=== PATIENT | female | born 1950 | race Caucasian/White ===

== ENCOUNTER 2019-11-25 04:33 | Inpatient (IN) ==
[2019-11-25] MEDS ORDERED: 0.9 % Sodium Chloride 250 ML IVC ONE (04:39)
[2019-11-25 05:19] LABS: Basophils % 0.3 %; Eosinophils % 0.2 %; Hematocrit 33.9 % (35.3-44.9); Hemoglobin 10.9 g/dL (11.5-15.4); Immature Granulocytes % 0.3 % (0-4); Lymphocytes # 1.2 K/mcL (0.6-4.6); Mean Corpuscular HGB Conc 32.2 g/dL (31.6-35.5); Mean Corpuscular Hemoglobin 30.4 pg (28.0-33.3); Mean Corpuscular Volume 94.7 fL (83.0-100.0); Mean Platelet Volume 9.4 fL (9.4-12.4); Monocytes # 0.6 K/mcL (0.0-1.3); Monocytes % 9.9 %; Platelet Count 256 K/mcL (140-400); Red Blood Count 3.58 M/mcL (3.82-4.97); Red Cell Distribution Width 12.2 % (11.5-14.5); Segmented Neutrophils % 69.3 %; White Blood Count 5.8 K/mcL (4.3-11.1)
[2019-11-25 05:39] LABS: Albumin 3.9 g/dL (3.5-5.7); Albumin/Globulin Ratio 1.1 (1.1-2.2); Bilirubin,Total 0.2 mg/dL (0.3-1.0); Calcium 8.6 mg/dL (8.6-10.3); Globulin 3.4 g/dL (2.4-3.5); Potassium 3.6 mEq/L (3.5-5.1); Total Protein 7.3 g/dL (6.4-8.9); Troponin I 0.03 ng/mL (< 0.04)
[2019-11-25] MEDS ORDERED: 0.9 % Sodium Chloride 1,000 ML IVC ONE (05:45)
[2019-11-25 06:05] LABS: Bacteria,Urine Few per hpf (None-Few); Bilirubin,Urine Negative (Negative); Blood,Urine Trace (Negative); Clarity,Urine Clear (Clear); Color,Urine Light-Yellow (Yellow); Glucose,Urine (UA) Normal (Normal); Ketones,Urine Negative (Negative); Leukocyte Esterase,Urine Moderate (Negative); Mucus,Urine Few per lpf (None-Few); Nitrite,Urine Positive (Negative); PH,Urine 5.5 pH Units (5.0-8.0); Protein,Urine 50 mg/dL (Neg-Trace); RBC,Urine 0-3 per hpf (0-3); Specific Gravity,Urine 1.016 (1.010-1.025); Squamous Epithelial Cell,Urine Few per hpf (None-Few); Urobilinogen,Urine Normal (Normal); WBC,Urine 15-30 per hpf (0-3)
[2019-11-25] MEDS ORDERED: Naloxone 0.4 MG/ML INJ IVP PRN (06:37)
[2019-11-25] MEDS ORDERED: Dextrose Gel 15 GM/37.5 ML TUBE PO PRN ×2 (07:25)
[2019-11-25] MEDS ORDERED: D5% in Water 1,000 ML IVC PRN (07:25)
[2019-11-25] MEDS ORDERED: *HR* Dextrose 50 % in Water (Vial) 50 ML VIAL IVP PRN (07:25)
[2019-11-25] MEDS: Insulin LISPRO 300 UNITS/3 ML VIAL SQ SCH ×6 (08:17→18:00)
[2019-11-25 08:55] LABS: Fibrinogen 312 mg/dL (169-393)
[2019-11-25 08:56] LABS: D-Dimer 255 ng/mLFEU (0-500)
[2019-11-25] MEDS ORDERED: Famotidine 20 MG TABLET PO SCH (09:00)
[2019-11-25] MEDS: Aspirin Enteric Coated 81 MG Tablet PO SCH (10:11)
[2019-11-25] MEDS: Multivit/Ca/Min/Fe/FA 1 TAB TABLET PO SCH (10:11)
[2019-11-25] MEDS: Sennosides 8.6 MG TABLET PO SCH ×2 (10:11→20:15)
[2019-11-25] MEDS: Furosemide 40 MG TABLET PO SCH ×2 (10:11→20:15)
[2019-11-25] MEDS: Loratadine 10 MG TABLET PO SCH (10:11)
[2019-11-25] MEDS: hydroCHLOROthiazide 25 MG TABLET PO SCH (10:12)
[2019-11-25] MEDS: amLODIPine 5 MG TABLET PO SCH (10:12)
[2019-11-25] MEDS: polyethylene glycoL 3350 17 GM POWD.PACK PO SCH (10:12)
[2019-11-25] MEDS: Dexamethasone 4 MG/ML VIAL IVP SCH (10:12)
[2019-11-25] MEDS: Cholecalciferol (D-3) 1,000 UNIT (25MCG) TABLET PO SCH (10:14)
[2019-11-25] MEDS: Budesonide/Formoterol 80/4.5 1 PUFF INH IH SCH ×2 (10:38→21:33)
[2019-11-25 12:33] LABS: Adenovirus Not Detected (Not Detect); Coronavirus 229E Not Detected (Not Detect); Coronavirus HKU1 Not Detected (Not Detect); Coronavirus NL63 Not Detected (Not Detect); Coronavirus OC43 Not Detected (Not Detect)
[2019-11-25 12:36] LABS: Bordetella Pertussis Not Detected (Not Detect); Chlamydophila pneumoniae Not Detected (Not Detect); Human Metapneumovirus Not Detected (Not Detect); Human Rhinovirus/Enterovirus Not Detected (Not Detect); Influenza A Subtype 2009 H1 Not Detected (Not Detect); Influenza B Not Detected (Not Detect); Mycoplasma pneumoniae Not Detected (Not Detect); Parainfluenza Virus 1 Not Detected (Not Detect); Parainfluenza Virus 2 Not Detected (Not Detect); Parainfluenza Virus 3 Not Detected (Not Detect); Parainfluenza Virus 4 Not Detected (Not Detect); Respiratory Syncytial Virus Not Detected (Not Detect); SARS-CoV-2 DETECTED (Not Detect)
[2019-11-25] MEDS ORDERED: Benzonatate 100 MG CAPSULE PO PRN (17:01)
[2019-11-25] MEDS: *HR* Heparin 5,000 UNIT/ML VIAL SQ SCH (17:39)
[2019-11-25] MEDS: Silvasorb 44.4 ML TUBE TP SCH (17:40)
[2019-11-25] MEDS: Gabapentin 400 MG CAPSULE PO SCH (20:15)
[2019-11-25] MEDS: Fenofibrate 54 MG TABLET PO SCH (20:15)
[2019-11-25] MEDS: Insulin DETEMIR 100 UNIT/ML X5UNITS SQ SCH (20:34)
[2019-11-26 02:00] LABS: Basophils % 0.2 %; Eosinophils % 0.2 %; Hematocrit 30.8 % (35.3-44.9); Hemoglobin 10.3 g/dL (11.5-15.4); Immature Granulocytes % 0.2 % (0-4); Lymphocytes # 1.2 K/mcL (0.6-4.6); Lymphocytes % 28.7 %; Mean Corpuscular HGB Conc 33.4 g/dL (31.6-35.5); Mean Corpuscular Hemoglobin 31.2 pg (28.0-33.3); Mean Corpuscular Volume 93.3 fL (83.0-100.0); Mean Platelet Volume 9.4 fL (9.4-12.4); Monocytes # 0.5 K/mcL (0.0-1.3); Monocytes % 11.4 %; Neutrophils # 2.4 K/mcL (1.6-8.9); Platelet Count 226 K/mcL (140-400); Red Cell Distribution Width 12.1 % (11.5-14.5); Segmented Neutrophils % 59.3 %; White Blood Count 4.1 K/mcL (4.3-11.1)
[2019-11-26 02:19] LABS: Alanine Aminotransferase 19 Units/L (7-52); Albumin 3.8 g/dL (3.5-5.7); Albumin/Globulin Ratio 1.1 (1.1-2.2); Alkaline Phosphatase 36 Units/L (34-104); Aspartate Amino Transferase 21 Units/L (13-39); BUN/Creatinine Ratio 33 (6-26); Bilirubin,Direct 0.1 mg/dL (0.0-0.2); Bilirubin,Indirect 0.1 mg/dL (0.0-1.0); Bilirubin,Total 0.2 mg/dL (0.3-1.0); Blood Urea Nitrogen 34 mg/dL (8-23); Calcium 8.7 mg/dL (8.6-10.3); Carbon Dioxide 29 mEq/L (23-29); Chloride 92 mEq/L (98-107); Globulin 3.4 g/dL (2.4-3.5); Glucose 175 mg/dL (70-105); Osmolality,Calculated 288 (280-300); Potassium 3.4 mEq/L (3.5-5.1); Sodium 133 mEq/L (136-145); Total Protein 7.2 g/dL (6.4-8.9); eGFR For African Americans > 60 (> 60); eGFR For Non-African Americans 54 (> 60)
[2019-11-26] MEDS: *HR* HYDROcodone/Acet 5/325 mg TABLET PO PRN ×2 (03:57→11:32)
[2019-11-26 04:15] LABS: Magnesium 1.7 mg/dL (1.6-2.6)
[2019-11-26] MEDS: *HR* Heparin 5,000 UNIT/ML VIAL SQ SCH ×2 (05:54→19:21)
[2019-11-26] MEDS: Budesonide/Formoterol 80/4.5 1 PUFF INH IH SCH ×2 (08:03→21:53)
[2019-11-26] MEDS: Insulin LISPRO 300 UNITS/3 ML VIAL SQ SCH ×6 (09:06→19:19)
[2019-11-26] MEDS: Multivit/Ca/Min/Fe/FA 1 TAB TABLET PO SCH (09:14)
[2019-11-26] MEDS: Sennosides 8.6 MG TABLET PO SCH ×2 (09:14→20:42)
[2019-11-26] MEDS: Cholecalciferol (D-3) 1,000 UNIT (25MCG) TABLET PO SCH (09:14)
[2019-11-26] MEDS: hydroCHLOROthiazide 25 MG TABLET PO SCH (09:14)
[2019-11-26] MEDS: Furosemide 40 MG TABLET PO SCH ×2 (09:15→20:41)
[2019-11-26] MEDS: Famotidine 20 MG TABLET PO SCH (09:15)
[2019-11-26] MEDS: Aspirin Enteric Coated 81 MG Tablet PO SCH (09:15)
[2019-11-26] MEDS: Loratadine 10 MG TABLET PO SCH (09:15)
[2019-11-26] MEDS: amLODIPine 5 MG TABLET PO SCH (09:16)
[2019-11-26] MEDS: Dexamethasone 4 MG/ML VIAL IVP SCH ×2 (09:16→20:42)
[2019-11-26] MEDS: polyethylene glycoL 3350 17 GM POWD.PACK PO SCH (09:16)
[2019-11-26] MEDS: Silvasorb 44.4 ML TUBE TP SCH (09:18)
[2019-11-26] MEDS: Ipratropium 1 PUFF INHALER IH SCH ×3 (10:53→21:52)
[2019-11-26 13:06] LABS: ABG Base Excess 6 mEq/L (-2 to 3); ABG HCO3 31 mEq/L (21-27); ABG Oxygen Saturation 93 % (95-98); ABG PCO2 49 mmHg (35-45); ABG PH 7.42 pH Units (7.32-7.45); ABG PO2 67 mmHg (85-104); ABG TCO2 33 mEq/L (20-26)
[2019-11-26] MEDS ORDERED: 0.9 % Sodium Chloride 500 ML ONE (17:04)
[2019-11-26] MEDS: cefTRIAXone 1,000 MG in 0.9 % Sodium Chloride Mini Bag 100 ML IVPB SCH (17:16)
[2019-11-26] MEDS: Fenofibrate 54 MG TABLET PO SCH (20:42)
[2019-11-26] MEDS: Gabapentin 400 MG CAPSULE PO SCH (20:42)
[2019-11-26] MEDS: Insulin DETEMIR 100 UNIT/ML X5UNITS SQ SCH (20:43)
[2019-11-27] MEDS: Acetaminophen 325 MG TABLET PO PRN ×2 (00:22→11:51)
[2019-11-27] MEDS: Ipratropium 1 PUFF INHALER IH SCH ×4 (03:17→22:14)
[2019-11-27] MEDS: *HR* Heparin 5,000 UNIT/ML VIAL SQ SCH ×2 (05:41→18:32)
[2019-11-27 05:56] LABS: Hemoglobin 11.3 g/dL (11.5-15.4); Mean Corpuscular HGB Conc 32.3 g/dL (31.6-35.5); Mean Corpuscular Hemoglobin 30.3 pg (28.0-33.3); Mean Corpuscular Volume 93.8 fL (83.0-100.0); Mean Platelet Volume 9.9 fL (9.4-12.4); Platelet Count 222 K/mcL (140-400); Red Blood Count 3.73 M/mcL (3.82-4.97); Red Cell Distribution Width 12.3 % (11.5-14.5); White Blood Count 4.3 K/mcL (4.3-11.1)
[2019-11-27 06:19] LABS: Calcium 9.2 mg/dL (8.6-10.3); Magnesium 1.8 mg/dL (1.6-2.6); Phosphorous 4.6 mg/dL (2.7-4.5); Potassium 3.4 mEq/L (3.5-5.1)
[2019-11-27] MEDS: polyethylene glycoL 3350 17 GM POWD.PACK PO SCH (08:54)
[2019-11-27] MEDS: Famotidine 20 MG TABLET PO SCH (08:55)
[2019-11-27] MEDS: Loratadine 10 MG TABLET PO SCH (08:55)
[2019-11-27] MEDS: Sennosides 8.6 MG TABLET PO SCH ×2 (08:55→20:43)
[2019-11-27] MEDS: amLODIPine 5 MG TABLET PO SCH (08:55)
[2019-11-27] MEDS: Cholecalciferol (D-3) 1,000 UNIT (25MCG) TABLET PO SCH (08:55)
[2019-11-27] MEDS: Multivit/Ca/Min/Fe/FA 1 TAB TABLET PO SCH (08:55)
[2019-11-27] MEDS: Furosemide 40 MG TABLET PO SCH ×2 (08:56→20:43)
[2019-11-27] MEDS: Dexamethasone 4 MG/ML VIAL IVP SCH (08:56)
[2019-11-27] MEDS: Aspirin Enteric Coated 81 MG Tablet PO SCH (08:56)
[2019-11-27] MEDS: Insulin LISPRO 300 UNITS/3 ML VIAL SQ SCH ×5 (09:00→18:27)
[2019-11-27] MEDS: hydroCHLOROthiazide 25 MG TABLET PO SCH (09:00)
[2019-11-27] MEDS: Budesonide/Formoterol 80/4.5 1 PUFF INH IH SCH ×2 (09:15→22:14)
[2019-11-27] MEDS: Silvasorb 44.4 ML TUBE TP SCH (11:50)
[2019-11-27] MEDS: tiZANidine 4 MG TABLET PO SCH (13:57)
[2019-11-27] MEDS: Vancomycin 1,500 MG/265 ML IV.SOLN IVPB ONE (13:58)
[2019-11-27] MEDS ORDERED: Insulin LISPRO 300 UNITS/3 ML VIAL SQ SCH (17:00)
[2019-11-27] MEDS ORDERED: Vancomycin 1,500 MG/265 ML IV.SOLN IVPB ONE (20:00)
[2019-11-27] MEDS: Gabapentin 400 MG CAPSULE PO SCH (20:42)
[2019-11-27] MEDS: Fenofibrate 54 MG TABLET PO SCH (20:42)
[2019-11-27] MEDS: Melatonin 3 MG TABLET PO SCH (20:42)
[2019-11-27] MEDS: *HR* HYDROcodone/Acet 5/325 mg TABLET PO PRN (20:49)
[2019-11-27] MEDS ORDERED: Insulin DETEMIR 100 UNIT/ML X5UNITS SQ SCH ×2 (21:00)
[2019-11-27] MEDS ORDERED: Insulin LISPRO 300 UNITS/3 ML VIAL SQ ONE (21:13)
[2019-11-28] MEDS: Dexamethasone 4 MG/ML VIAL IVP SCH ×2 (00:02→10:21)
[2019-11-28] MEDS: cefTRIAXone 1,000 MG in 0.9 % Sodium Chloride Mini Bag 100 ML IVPB SCH (00:02)
[2019-11-28] MEDS ORDERED: CefTRIAXone 1,000 MG VIAL IM ONE (00:21)
[2019-11-28] MEDS ORDERED: Lidocaine 1% 20 ML MDV INFILT ONE (00:30)
[2019-11-28] MEDS ORDERED: hydrALAZINE 25 MG TABLET PO ONE (01:42)
[2019-11-28 01:55] LABS: ABG Base Excess 7 mEq/L (-2 to 3); ABG HCO3 33 mEq/L (21-27); ABG Oxygen Saturation 92 % (95-98); ABG PCO2 52 mmHg (35-45); ABG PH 7.41 pH Units (7.32-7.45); ABG PO2 65 mmHg (85-104); ABG TCO2 34 mEq/L (20-26)
[2019-11-28] MEDS ORDERED: Acetaminophen 650 MG RECTAL SUPP RC ONE (02:48)
[2019-11-28] MEDS: Ipratropium 1 PUFF INHALER IH SCH ×4 (03:38→21:27)
[2019-11-28 04:28] LABS: Basophils % 0.2 %; Hematocrit 31.6 % (35.3-44.9); Hemoglobin 10.4 g/dL (11.5-15.4); Immature Granulocytes % 0.5 % (0-4); Lymphocytes # 0.9 K/mcL (0.6-4.6); Lymphocytes % 14.4 %; Mean Corpuscular HGB Conc 32.9 g/dL (31.6-35.5); Mean Corpuscular Hemoglobin 30.2 pg (28.0-33.3); Mean Corpuscular Volume 91.9 fL (83.0-100.0); Mean Platelet Volume 9.9 fL (9.4-12.4); Monocytes # 0.4 K/mcL (0.0-1.3); Monocytes % 6.6 %; Neutrophils # 5.1 K/mcL (1.6-8.9); Platelet Count 239 K/mcL (140-400); Red Blood Count 3.44 M/mcL (3.82-4.97); Red Cell Distribution Width 12.2 % (11.5-14.5); Segmented Neutrophils % 78.3 %; White Blood Count 6.5 K/mcL (4.3-11.1)
[2019-11-28 04:44] LABS: Albumin 3.7 g/dL (3.5-5.7); Bilirubin,Total 0.3 mg/dL (0.3-1.0); Calcium 8.8 mg/dL (8.6-10.3); Globulin 3.8 g/dL (2.4-3.5); Potassium 4.1 mEq/L (3.5-5.1); Total Protein 7.5 g/dL (6.4-8.9)
[2019-11-28] MEDS: *HR* Heparin 5,000 UNIT/ML VIAL SQ SCH ×2 (05:56→18:01)
[2019-11-28] MEDS: polyethylene glycoL 3350 17 GM POWD.PACK PO SCH (08:41)
[2019-11-28] MEDS: Ascorbic Acid 500 MG TABLET PO SCH (08:42)
[2019-11-28] MEDS: Acetaminophen 325 MG TABLET PO PRN (08:43)
[2019-11-28] MEDS: tiZANidine 4 MG TABLET PO SCH (08:43)
[2019-11-28] MEDS: Aspirin Enteric Coated 81 MG Tablet PO SCH (08:44)
[2019-11-28] MEDS: Famotidine 20 MG TABLET PO SCH (08:44)
[2019-11-28] MEDS: Sennosides 8.6 MG TABLET PO SCH ×2 (08:44→21:17)
[2019-11-28] MEDS: Furosemide 40 MG TABLET PO SCH ×2 (08:45→21:17)
[2019-11-28] MEDS: hydroCHLOROthiazide 25 MG TABLET PO SCH (08:45)
[2019-11-28] MEDS: Cholecalciferol (D-3) 1,000 UNIT (25MCG) TABLET PO SCH (08:45)
[2019-11-28] MEDS: Multivit/Ca/Min/Fe/FA 1 TAB TABLET PO SCH (08:45)
[2019-11-28] MEDS: Loratadine 10 MG TABLET PO SCH (08:46)
[2019-11-28] MEDS: amLODIPine 5 MG TABLET PO SCH (08:46)
[2019-11-28] MEDS: Insulin LISPRO 300 UNITS/3 ML VIAL SQ SCH ×6 (08:49→16:38)
[2019-11-28] MEDS: Silvasorb 44.4 ML TUBE TP SCH (08:50)
[2019-11-28] MEDS ORDERED: NON-FORMULARY MEDICATION 1 EACH EACH (Calcium Carbonate/Vitamin D3 [Calcium 500-Vit D3 200 PO SCH (09:00)
[2019-11-28] MEDS: Budesonide/Formoterol 80/4.5 1 PUFF INH IH SCH ×2 (10:04→21:27)
[2019-11-28] MEDS ORDERED: Insulin Human Regular 10 UNIT in 0.9 % Sodium Chloride 10 ML IV ONE (11:28)
[2019-11-28 12:07] LABS: Estimated Average Glucose 217 mg/dl
[2019-11-28] MEDS: Cefepime HCl 2,000 MG in 0.9 % Sodium Chloride Mini Bag 100 ML IVPB SCH (15:21)
[2019-11-28] MEDS ORDERED: Vancomycin 1,250 MG/262.5 ML IV.SOLN IVPB SCH (20:00)
[2019-11-28] MEDS: Gabapentin 400 MG CAPSULE PO SCH (21:17)
[2019-11-28] MEDS: Doxycycline 100 MG CAPSULE PO SCH (21:17)
[2019-11-28] MEDS: Melatonin 3 MG TABLET PO SCH (21:17)
[2019-11-28] MEDS: Fenofibrate 54 MG TABLET PO SCH (21:17)
[2019-11-28] MEDS: Insulin DETEMIR 100 UNIT/ML X5UNITS SQ SCH (21:17)
[2019-11-29] MEDS: Cefepime HCl 2,000 MG in 0.9 % Sodium Chloride Mini Bag 100 ML IVPB SCH ×2 (03:12→16:55)
[2019-11-29] MEDS: Ipratropium 1 PUFF INHALER IH SCH ×4 (03:32→21:55)
[2019-11-29 03:50] LABS: Hematocrit 31.5 % (35.3-44.9); Hemoglobin 10.3 g/dL (11.5-15.4); Mean Corpuscular HGB Conc 32.7 g/dL (31.6-35.5); Mean Corpuscular Hemoglobin 30.3 pg (28.0-33.3); Mean Corpuscular Volume 92.6 fL (83.0-100.0); Mean Platelet Volume 10.2 fL (9.4-12.4); Platelet Count 299 K/mcL (140-400); Red Cell Distribution Width 12.1 % (11.5-14.5); White Blood Count 6.7 K/mcL (4.3-11.1)
[2019-11-29 04:02] LABS: Calcium 8.9 mg/dL (8.6-10.3); Magnesium 1.9 mg/dL (1.6-2.6); Phosphorous 2.5 mg/dL (2.7-4.5); Potassium 3.9 mEq/L (3.5-5.1)
[2019-11-29] MEDS: Acetaminophen 325 MG TABLET PO PRN (04:19)
[2019-11-29] MEDS: *HR* Heparin 5,000 UNIT/ML VIAL SQ SCH ×2 (05:29→17:19)
[2019-11-29] MEDS: Doxycycline 100 MG CAPSULE PO SCH ×2 (05:29→17:19)
[2019-11-29] MEDS: Vancomycin 1,500 MG/265 ML IV.SOLN IVPB ONE (07:47)
[2019-11-29] MEDS ORDERED: Dexamethasone 4 MG/ML VIAL IVP SCH ×2 (09:00→21:00)
[2019-11-29] MEDS: Budesonide/Formoterol 80/4.5 1 PUFF INH IH SCH ×2 (09:15→21:55)
[2019-11-29] MEDS: Insulin LISPRO 300 UNITS/3 ML VIAL SQ SCH ×6 (09:59→17:20)
[2019-11-29] MEDS: Insulin DETEMIR 100 UNIT/ML X5UNITS SQ SCH ×2 (09:59→20:49)
[2019-11-29] MEDS: hydroCHLOROthiazide 25 MG TABLET PO SCH (10:03)
[2019-11-29] MEDS: Famotidine 20 MG TABLET PO SCH (10:03)
[2019-11-29] MEDS: Sennosides 8.6 MG TABLET PO SCH ×2 (10:03→20:45)
[2019-11-29] MEDS: polyethylene glycoL 3350 17 GM POWD.PACK PO SCH (10:03)
[2019-11-29] MEDS: Cholecalciferol (D-3) 1,000 UNIT (25MCG) TABLET PO SCH (10:04)
[2019-11-29] MEDS: Ascorbic Acid 500 MG TABLET PO SCH (10:04)
[2019-11-29] MEDS: Aspirin Enteric Coated 81 MG Tablet PO SCH (10:04)
[2019-11-29] MEDS: Furosemide 40 MG TABLET PO SCH (10:04)
[2019-11-29] MEDS: amLODIPine 5 MG TABLET PO SCH (10:04)
[2019-11-29] MEDS: Multivit/Ca/Min/Fe/FA 1 TAB TABLET PO SCH (10:04)
[2019-11-29] MEDS: Loratadine 10 MG TABLET PO SCH (10:04)
[2019-11-29] MEDS: Cefepime HCl 2,000 MG in Water for inj. (sterile) 20 ML IVP SCH (15:07)
[2019-11-29] MEDS: Silvasorb 44.4 ML TUBE TP SCH (17:36)
[2019-11-29] MEDS ORDERED: Cefepime HCl 2,000 MG in Water for inj. (sterile) 20 ML IVP SCH (18:00)
[2019-11-29] MEDS: Fenofibrate 54 MG TABLET PO SCH (20:45)
[2019-11-29] MEDS: Gabapentin 400 MG CAPSULE PO SCH (20:45)
[2019-11-29] MEDS: Melatonin 3 MG TABLET PO SCH (20:45)
[2019-11-30] MEDS: Cefepime HCl 2,000 MG in Water for inj. (sterile) 20 ML IVP SCH ×2 (03:04→16:12)
[2019-11-30] MEDS: Ipratropium 1 PUFF INHALER IH SCH ×4 (03:56→21:27)
[2019-11-30] MEDS: Doxycycline 100 MG CAPSULE PO SCH ×2 (05:59→16:12)
[2019-11-30] MEDS: *HR* Heparin 5,000 UNIT/ML VIAL SQ SCH ×2 (05:59→16:12)
[2019-11-30 06:11] LABS: Hematocrit 31.6 % (35.3-44.9); Hemoglobin 10.7 g/dL (11.5-15.4); Mean Corpuscular HGB Conc 33.9 g/dL (31.6-35.5); Mean Corpuscular Hemoglobin 31.6 pg (28.0-33.3); Mean Corpuscular Volume 93.2 fL (83.0-100.0); Mean Platelet Volume 9.9 fL (9.4-12.4); Platelet Count 332 K/mcL (140-400); Red Blood Count 3.39 M/mcL (3.82-4.97); Red Cell Distribution Width 12.1 % (11.5-14.5); White Blood Count 6.9 K/mcL (4.3-11.1)
[2019-11-30 08:03] LABS: BUN/Creatinine Ratio 49 (6-26); Blood Urea Nitrogen 60 mg/dL (8-23); Calcium 9.5 mg/dL (8.6-10.3); Carbon Dioxide 31 mEq/L (23-29); Chloride 88 mEq/L (98-107); Ferritin 580 ng/mL (10-120); Glucose 205 mg/dL (70-105); Lactate Dehydrogenase 252 Units/L (140-271); Osmolality,Calculated 305 (280-300); Phosphorous 3.5 mg/dL (2.7-4.5); Potassium 3.5 mEq/L (3.5-5.1); Sodium 136 mEq/L (136-145); eGFR For African Americans 52 (> 60); eGFR For Non-African Americans 43 (> 60)
[2019-11-30 08:45] LABS: C-Reactive Protein > 300 mg/L (Less than 10)
[2019-11-30] MEDS ORDERED: Dexamethasone 4 MG/ML VIAL IVP SCH (09:00)
[2019-11-30] MEDS: Insulin LISPRO 300 UNITS/3 ML VIAL SQ SCH ×6 (09:26→17:00)
[2019-11-30] MEDS: Cholecalciferol (D-3) 1,000 UNIT (25MCG) TABLET PO SCH (09:33)
[2019-11-30] MEDS: hydroCHLOROthiazide 25 MG TABLET PO SCH (09:33)
[2019-11-30] MEDS: polyethylene glycoL 3350 17 GM POWD.PACK PO SCH (09:33)
[2019-11-30] MEDS: Loratadine 10 MG TABLET PO SCH (09:33)
[2019-11-30] MEDS: amLODIPine 5 MG TABLET PO SCH (09:33)
[2019-11-30] MEDS: Aspirin Enteric Coated 81 MG Tablet PO SCH (09:33)
[2019-11-30] MEDS: Multivit/Ca/Min/Fe/FA 1 TAB TABLET PO SCH (09:33)
[2019-11-30] MEDS: Ascorbic Acid 500 MG TABLET PO SCH (09:33)
[2019-11-30] MEDS: Famotidine 20 MG TABLET PO SCH (09:33)
[2019-11-30] MEDS: Furosemide 40 MG/4 ML VIAL IVP SCH (09:34)
[2019-11-30] MEDS: Sennosides 8.6 MG TABLET PO SCH ×2 (09:34→20:21)
[2019-11-30] MEDS: Insulin DETEMIR 100 UNIT/ML X5UNITS SQ SCH ×2 (09:35→20:23)
[2019-11-30] MEDS: Budesonide/Formoterol 80/4.5 1 PUFF INH IH SCH ×2 (10:38→21:28)
[2019-11-30] MEDS ORDERED: 0.9 % Sodium Chloride 250 ML ONE (16:11)
[2019-11-30] MEDS: Silvasorb 44.4 ML TUBE TP SCH (17:01)
[2019-11-30] MEDS: Dexamethasone 4 MG/ML VIAL IVP SCH (20:20)
[2019-11-30] MEDS: Gabapentin 400 MG CAPSULE PO SCH (20:21)
[2019-11-30] MEDS: Melatonin 3 MG TABLET PO SCH (20:22)
[2019-11-30] MEDS: Fenofibrate 54 MG TABLET PO SCH (20:22)
[2019-11-30] MEDS ORDERED: Insulin DETEMIR 100 UNIT/ML X5UNITS SQ SCH (21:00)
[2019-12-01] MEDS: Cefepime HCl 2,000 MG in Water for inj. (sterile) 20 ML IVP SCH ×2 (02:51→14:46)
[2019-12-01] MEDS: Ipratropium 1 PUFF INHALER IH SCH ×4 (03:46→21:32)
[2019-12-01 03:59] LABS: Basophils % 0.2 %; Hematocrit 30.5 % (35.3-44.9); Hemoglobin 9.9 g/dL (11.5-15.4); Immature Granulocytes % 1.2 % (0-4); Lymphocytes # 0.9 K/mcL (0.6-4.6); Lymphocytes % 15.3 %; Mean Corpuscular HGB Conc 32.5 g/dL (31.6-35.5); Mean Corpuscular Hemoglobin 30.1 pg (28.0-33.3); Mean Corpuscular Volume 92.7 fL (83.0-100.0); Mean Platelet Volume 9.7 fL (9.4-12.4); Monocytes # 0.4 K/mcL (0.0-1.3); Monocytes % 7.3 %; Neutrophils # 4.5 K/mcL (1.6-8.9); Platelet Count 387 K/mcL (140-400); Red Blood Count 3.29 M/mcL (3.82-4.97); White Blood Count 5.9 K/mcL (4.3-11.1)
[2019-12-01 04:19] LABS: BUN/Creatinine Ratio 64 (6-26); Blood Urea Nitrogen 69 mg/dL (8-23); Carbon Dioxide 30 mEq/L (23-29); Chloride 90 mEq/L (98-107); Glucose 177 mg/dL (70-105); Osmolality,Calculated 300 (280-300); Potassium 3.7 mEq/L (3.5-5.1); Sodium 133 mEq/L (136-145); eGFR For African Americans > 60 (> 60); eGFR For Non-African Americans 50 (> 60)
[2019-12-01] MEDS: *HR* Heparin 5,000 UNIT/ML VIAL SQ SCH ×2 (06:12→17:24)
[2019-12-01] MEDS: Doxycycline 100 MG CAPSULE PO SCH ×2 (06:14→17:24)
[2019-12-01] MEDS: Multivit/Ca/Min/Fe/FA 1 TAB TABLET PO SCH (08:38)
[2019-12-01] MEDS: Loratadine 10 MG TABLET PO SCH (08:38)
[2019-12-01] MEDS: Aspirin Enteric Coated 81 MG Tablet PO SCH (08:38)
[2019-12-01] MEDS: Cholecalciferol (D-3) 1,000 UNIT (25MCG) TABLET PO SCH (08:38)
[2019-12-01] MEDS: amLODIPine 5 MG TABLET PO SCH (08:38)
[2019-12-01] MEDS: Sennosides 8.6 MG TABLET PO SCH ×2 (08:39→21:16)
[2019-12-01] MEDS: Famotidine 20 MG TABLET PO SCH (08:39)
[2019-12-01] MEDS: hydroCHLOROthiazide 25 MG TABLET PO SCH (08:39)
[2019-12-01] MEDS: Furosemide 40 MG/4 ML VIAL IVP SCH (08:39)
[2019-12-01] MEDS: Ascorbic Acid 500 MG TABLET PO SCH (08:39)
[2019-12-01] MEDS: Dexamethasone 4 MG/ML VIAL IVP SCH ×2 (08:39→21:17)
[2019-12-01] MEDS: polyethylene glycoL 3350 17 GM POWD.PACK PO SCH (08:40)
[2019-12-01] MEDS: Insulin DETEMIR 100 UNIT/ML X5UNITS SQ SCH ×2 (08:42→21:40)
[2019-12-01] MEDS: Insulin LISPRO 300 UNITS/3 ML VIAL SQ SCH ×6 (08:43→17:14)
[2019-12-01] MEDS: Ondansetron 4 MG/2 ML VIAL IVP PRN (09:10)
[2019-12-01] MEDS: Budesonide/Formoterol 80/4.5 1 PUFF INH IH SCH ×2 (10:18→21:34)
[2019-12-01] MEDS: Acetaminophen 325 MG TABLET PO PRN ×2 (10:27→23:57)
[2019-12-01] MEDS: Silvasorb 44.4 ML TUBE TP SCH (13:07)
[2019-12-01] MEDS ORDERED: 0.9 % Sodium Chloride 250 ML ONE (14:44)
[2019-12-01] MEDS: Melatonin 3 MG TABLET PO SCH (21:16)
[2019-12-01] MEDS: Fenofibrate 54 MG TABLET PO SCH (21:16)
[2019-12-01] MEDS: Gabapentin 400 MG CAPSULE PO SCH (21:16)
[2019-12-02] MEDS: Cefepime HCl 2,000 MG in Water for inj. (sterile) 20 ML IVP SCH ×2 (02:42→15:48)
[2019-12-02] MEDS: Ipratropium 1 PUFF INHALER IH SCH ×4 (03:27→21:59)
[2019-12-02 03:59] LABS: Basophils % 0.1 %; Hematocrit 29.8 % (35.3-44.9); Hemoglobin 9.7 g/dL (11.5-15.4); Immature Granulocytes % 1.7 % (0-4); Lymphocytes % 13.5 %; Mean Corpuscular HGB Conc 32.6 g/dL (31.6-35.5); Mean Corpuscular Hemoglobin 30.7 pg (28.0-33.3); Mean Corpuscular Volume 94.3 fL (83.0-100.0); Mean Platelet Volume 9.7 fL (9.4-12.4); Monocytes # 0.6 K/mcL (0.0-1.3); Neutrophils # 5.9 K/mcL (1.6-8.9); Platelet Count 418 K/mcL (140-400); Red Blood Count 3.16 M/mcL (3.82-4.97); Red Cell Distribution Width 11.9 % (11.5-14.5); Segmented Neutrophils % 76.7 %; White Blood Count 7.7 K/mcL (4.3-11.1)
[2019-12-02] MEDS: Doxycycline 100 MG CAPSULE PO SCH ×2 (05:10→17:51)
[2019-12-02] MEDS: *HR* Heparin 5,000 UNIT/ML VIAL SQ SCH ×2 (05:10→17:51)
[2019-12-02] MEDS: Insulin LISPRO 300 UNITS/3 ML VIAL SQ SCH ×6 (09:05→16:23)
[2019-12-02] MEDS: Furosemide 40 MG/4 ML VIAL IVP SCH (09:15)
[2019-12-02] MEDS: Dexamethasone 4 MG/ML VIAL IVP SCH ×2 (09:16→21:17)
[2019-12-02] MEDS: hydroCHLOROthiazide 25 MG TABLET PO SCH (09:16)
[2019-12-02] MEDS: Insulin DETEMIR 100 UNIT/ML X5UNITS SQ SCH ×2 (09:16→21:16)
[2019-12-02] MEDS: Aspirin Enteric Coated 81 MG Tablet PO SCH (09:16)
[2019-12-02] MEDS: Ascorbic Acid 500 MG TABLET PO SCH (09:17)
[2019-12-02] MEDS: Cholecalciferol (D-3) 1,000 UNIT (25MCG) TABLET PO SCH (09:17)
[2019-12-02] MEDS: Multivit/Ca/Min/Fe/FA 1 TAB TABLET PO SCH (09:17)
[2019-12-02] MEDS: amLODIPine 5 MG TABLET PO SCH (09:17)
[2019-12-02] MEDS: Famotidine 20 MG TABLET PO SCH (09:17)
[2019-12-02] MEDS: Loratadine 10 MG TABLET PO SCH (09:17)
[2019-12-02] MEDS: polyethylene glycoL 3350 17 GM POWD.PACK PO SCH (09:18)
[2019-12-02] MEDS: Sennosides 8.6 MG TABLET PO SCH ×2 (09:18→21:16)
[2019-12-02] MEDS: Acetaminophen 325 MG TABLET PO PRN (09:46)
[2019-12-02] MEDS: Silvasorb 44.4 ML TUBE TP SCH (10:00)
[2019-12-02] MEDS: Budesonide/Formoterol 80/4.5 1 PUFF INH IH SCH ×2 (11:34→21:59)
[2019-12-02] MEDS: Melatonin 3 MG TABLET PO SCH (21:16)
[2019-12-02] MEDS: Gabapentin 400 MG CAPSULE PO SCH (21:17)
[2019-12-02] MEDS: Fenofibrate 54 MG TABLET PO SCH (21:17)
[2019-12-03] MEDS: Acetaminophen 325 MG TABLET PO PRN (00:14)
[2019-12-03] MEDS: Cefepime HCl 2,000 MG in Water for inj. (sterile) 20 ML IVP SCH ×2 (02:38→15:55)
[2019-12-03 03:17] LABS: Basophils % 0.2 %; Hematocrit 30.8 % (35.3-44.9); Immature Granulocytes % 1.4 % (0-4); Lymphocytes % 10.8 %; Mean Corpuscular HGB Conc 32.5 g/dL (31.6-35.5); Mean Corpuscular Hemoglobin 30.4 pg (28.0-33.3); Mean Corpuscular Volume 93.6 fL (83.0-100.0); Mean Platelet Volume 9.6 fL (9.4-12.4); Monocytes # 0.8 K/mcL (0.0-1.3); Neutrophils # 7.2 K/mcL (1.6-8.9); Platelet Count 488 K/mcL (140-400); Red Blood Count 3.29 M/mcL (3.82-4.97); Red Cell Distribution Width 11.9 % (11.5-14.5); Segmented Neutrophils % 78.6 %; White Blood Count 9.2 K/mcL (4.3-11.1)
[2019-12-03 03:30] LABS: Albumin 3.5 g/dL (3.5-5.7); Albumin/Globulin Ratio 0.8 (1.1-2.2); Bilirubin,Total 0.4 mg/dL (0.3-1.0); Calcium 10.6 mg/dL (8.6-10.3); Globulin 4.3 g/dL (2.4-3.5); Potassium 4.2 mEq/L (3.5-5.1); Total Protein 7.8 g/dL (6.4-8.9)
[2019-12-03] MEDS: Ipratropium 1 PUFF INHALER IH SCH ×4 (04:03→21:47)
[2019-12-03] MEDS: *HR* Heparin 5,000 UNIT/ML VIAL SQ SCH ×2 (05:43→18:07)
[2019-12-03] MEDS: Doxycycline 100 MG CAPSULE PO SCH ×2 (05:43→18:08)
[2019-12-03] MEDS: Insulin LISPRO 300 UNITS/3 ML VIAL SQ SCH ×6 (09:56→16:47)
[2019-12-03] MEDS: Insulin DETEMIR 100 UNIT/ML X5UNITS SQ SCH ×2 (09:58→20:16)
[2019-12-03] MEDS: Furosemide 40 MG/4 ML VIAL IVP SCH (10:01)
[2019-12-03] MEDS: Ascorbic Acid 500 MG TABLET PO SCH (10:02)
[2019-12-03] MEDS: Dexamethasone 4 MG/ML VIAL IVP SCH ×2 (10:02→20:15)
[2019-12-03] MEDS: Multivit/Ca/Min/Fe/FA 1 TAB TABLET PO SCH (10:02)
[2019-12-03] MEDS: Cholecalciferol (D-3) 1,000 UNIT (25MCG) TABLET PO SCH (10:02)
[2019-12-03] MEDS: amLODIPine 5 MG TABLET PO SCH (10:03)
[2019-12-03] MEDS: hydroCHLOROthiazide 25 MG TABLET PO SCH (10:03)
[2019-12-03] MEDS: Loratadine 10 MG TABLET PO SCH (10:03)
[2019-12-03] MEDS: Famotidine 20 MG TABLET PO SCH (10:03)
[2019-12-03] MEDS: Sennosides 8.6 MG TABLET PO SCH ×2 (10:03→20:15)
[2019-12-03] MEDS: polyethylene glycoL 3350 17 GM POWD.PACK PO SCH (10:03)
[2019-12-03] MEDS: Aspirin Enteric Coated 81 MG Tablet PO SCH (10:03)
[2019-12-03] MEDS: Budesonide/Formoterol 80/4.5 1 PUFF INH IH SCH ×2 (10:28→21:47)
[2019-12-03] MEDS: Silvasorb 44.4 ML TUBE TP SCH (16:01)
[2019-12-03] MEDS: Furosemide 20 MG/2 ML VIAL IVP SCH (18:08)
[2019-12-03] MEDS: Gabapentin 400 MG CAPSULE PO SCH (20:16)
[2019-12-03] MEDS: Fenofibrate 54 MG TABLET PO SCH (20:16)
[2019-12-03] MEDS: Melatonin 3 MG TABLET PO SCH (20:16)
[2019-12-04] MEDS: Cefepime HCl 2,000 MG in Water for inj. (sterile) 20 ML IVP SCH ×2 (04:00→16:34)
[2019-12-04] MEDS: Ipratropium 1 PUFF INHALER IH SCH ×4 (04:27→21:36)
[2019-12-04] MEDS: *HR* Heparin 5,000 UNIT/ML VIAL SQ SCH ×2 (06:08→16:33)
[2019-12-04] MEDS: Doxycycline 100 MG CAPSULE PO SCH ×2 (06:08→16:34)
[2019-12-04 06:56] LABS: Basophils % 0.4 %; Eosinophils % 0.1 %; Hematocrit 32.8 % (35.3-44.9); Hemoglobin 10.3 g/dL (11.5-15.4); Immature Granulocytes % 2.5 % (0-4); Lymphocytes # 1.2 K/mcL (0.6-4.6); Lymphocytes % 12.4 %; Mean Corpuscular HGB Conc 31.4 g/dL (31.6-35.5); Mean Corpuscular Hemoglobin 29.6 pg (28.0-33.3); Mean Corpuscular Volume 94.3 fL (83.0-100.0); Mean Platelet Volume 9.3 fL (9.4-12.4); Monocytes # 0.8 K/mcL (0.0-1.3); Monocytes % 8.5 %; Neutrophils # 7.4 K/mcL (1.6-8.9); Platelet Count 641 K/mcL (140-400); Red Blood Count 3.48 M/mcL (3.82-4.97); Red Cell Distribution Width 11.9 % (11.5-14.5); Segmented Neutrophils % 76.1 %; White Blood Count 9.7 K/mcL (4.3-11.1)
[2019-12-04 07:25] LABS: Alanine Aminotransferase 23 Units/L (7-52); Albumin 3.7 g/dL (3.5-5.7); Albumin/Globulin Ratio 0.8 (1.1-2.2); Alkaline Phosphatase 46 Units/L (34-104); Aspartate Amino Transferase 26 Units/L (13-39); BUN/Creatinine Ratio 65 (6-26); Bilirubin,Total 0.4 mg/dL (0.3-1.0); Blood Urea Nitrogen 81 mg/dL (8-23); Calcium 11.2 mg/dL (8.6-10.3); Carbon Dioxide 31 mEq/L (23-29); Chloride 90 mEq/L (98-107); Globulin 4.8 g/dL (2.4-3.5); Glucose 181 mg/dL (70-105); Lactate Dehydrogenase 236 Units/L (140-271); Osmolality,Calculated 309 (280-300); Potassium 4.1 mEq/L (3.5-5.1); Sodium 135 mEq/L (136-145); Total Protein 8.5 g/dL (6.4-8.9); eGFR For African Americans 52 (> 60); eGFR For Non-African Americans 43 (> 60)
[2019-12-04 07:43] LABS: Ferritin 675 ng/mL (10-120)
[2019-12-04] MEDS: Budesonide/Formoterol 80/4.5 1 PUFF INH IH SCH ×2 (09:19→21:35)
[2019-12-04] MEDS: Insulin LISPRO 300 UNITS/3 ML VIAL SQ SCH ×6 (09:37→17:07)
[2019-12-04] MEDS: Insulin DETEMIR 100 UNIT/ML X5UNITS SQ SCH ×2 (09:37→20:52)
[2019-12-04] MEDS: Loratadine 10 MG TABLET PO SCH (09:38)
[2019-12-04] MEDS: Aspirin Enteric Coated 81 MG Tablet PO SCH (09:38)
[2019-12-04] MEDS: Ascorbic Acid 500 MG TABLET PO SCH (09:38)
[2019-12-04] MEDS: Famotidine 20 MG TABLET PO SCH (09:38)
[2019-12-04] MEDS: hydroCHLOROthiazide 25 MG TABLET PO SCH (09:38)
[2019-12-04] MEDS: Cholecalciferol (D-3) 1,000 UNIT (25MCG) TABLET PO SCH (09:38)
[2019-12-04] MEDS: Multivit/Ca/Min/Fe/FA 1 TAB TABLET PO SCH (09:38)
[2019-12-04] MEDS: Furosemide 40 MG/4 ML VIAL IVP SCH (09:39)
[2019-12-04] MEDS: Dexamethasone 4 MG/ML VIAL IVP SCH ×2 (09:39→20:51)
[2019-12-04] MEDS: Sennosides 8.6 MG TABLET PO SCH ×2 (09:39→20:51)
[2019-12-04 09:44] LABS: C-Reactive Protein > 300 mg/L (Less than 10)
[2019-12-04] MEDS: polyethylene glycoL 3350 17 GM POWD.PACK PO SCH (09:45)
[2019-12-04] MEDS: Silvasorb 44.4 ML TUBE TP SCH (09:48)
[2019-12-04] MEDS: amLODIPine 5 MG TABLET PO SCH ×2 (09:48→09:49)
[2019-12-04] MEDS: Ondansetron 4 MG/2 ML VIAL IVP PRN (10:15)
[2019-12-04] MEDS: Furosemide 20 MG/2 ML VIAL IVP SCH (16:34)
[2019-12-04] MEDS: Melatonin 3 MG TABLET PO SCH (20:50)
[2019-12-04] MEDS: Fenofibrate 54 MG TABLET PO SCH (20:51)
[2019-12-04] MEDS: Gabapentin 400 MG CAPSULE PO SCH (20:51)
[2019-12-05] MEDS: Cefepime HCl 2,000 MG in Water for inj. (sterile) 20 ML IVP SCH (02:58)
[2019-12-05] MEDS: Ipratropium 1 PUFF INHALER IH SCH ×4 (03:27→21:34)
[2019-12-05] MEDS: *HR* Heparin 5,000 UNIT/ML VIAL SQ SCH ×2 (06:11→17:47)
[2019-12-05] MEDS: Doxycycline 100 MG CAPSULE PO SCH (06:11)
[2019-12-05] MEDS: Loratadine 10 MG TABLET PO SCH (07:47)
[2019-12-05] MEDS: Cholecalciferol (D-3) 1,000 UNIT (25MCG) TABLET PO SCH (07:47)
[2019-12-05] MEDS: hydroCHLOROthiazide 25 MG TABLET PO SCH (07:47)
[2019-12-05] MEDS: Multivit/Ca/Min/Fe/FA 1 TAB TABLET PO SCH (07:47)
[2019-12-05] MEDS: Ascorbic Acid 500 MG TABLET PO SCH (07:47)
[2019-12-05] MEDS: Famotidine 20 MG TABLET PO SCH (07:48)
[2019-12-05] MEDS: Furosemide 40 MG/4 ML VIAL IVP SCH (07:48)
[2019-12-05] MEDS: amLODIPine 5 MG TABLET PO SCH (07:48)
[2019-12-05] MEDS: Sennosides 8.6 MG TABLET PO SCH ×2 (07:48→20:09)
[2019-12-05] MEDS: Aspirin Enteric Coated 81 MG Tablet PO SCH (07:48)
[2019-12-05] MEDS: polyethylene glycoL 3350 17 GM POWD.PACK PO SCH (07:48)
[2019-12-05] MEDS: Silvasorb 44.4 ML TUBE TP SCH (07:49)
[2019-12-05] MEDS: Insulin DETEMIR 100 UNIT/ML X5UNITS SQ SCH ×2 (07:49→20:39)
[2019-12-05] MEDS: Insulin LISPRO 300 UNITS/3 ML VIAL SQ SCH ×6 (07:50→16:34)
[2019-12-05] MEDS: Budesonide/Formoterol 80/4.5 1 PUFF INH IH SCH ×2 (07:55→21:34)
[2019-12-05 09:08] LABS: Basophils # 0.1 K/mcL (0.0-0.2); Basophils % 0.3 %; Eosinophils % 0.2 %; Hematocrit 35.3 % (35.3-44.9); Hemoglobin 11.4 g/dL (11.5-15.4); Immature Granulocytes % 1.4 % (0-4); Lymphocytes % 7.6 %; Mean Corpuscular HGB Conc 32.3 g/dL (31.6-35.5); Mean Corpuscular Hemoglobin 30.3 pg (28.0-33.3); Mean Corpuscular Volume 93.9 fL (83.0-100.0); Mean Platelet Volume 9.4 fL (9.4-12.4); Monocytes # 1.5 K/mcL (0.0-1.3); Monocytes % 8.9 %; Neutrophils # 13.4 K/mcL (1.6-8.9); Platelet Count 697 K/mcL (140-400); Red Blood Count 3.76 M/mcL (3.82-4.97); Segmented Neutrophils % 81.6 %
[2019-12-05 09:22] LABS: Lymphocytes # 1.3 K/mcL (0.6-4.6); White Blood Count 16.4 K/mcL (4.3-11.1)
[2019-12-05 09:31] LABS: Albumin 3.7 g/dL (3.5-5.7); Albumin/Globulin Ratio 0.7 (1.1-2.2); Bilirubin,Total 0.4 mg/dL (0.3-1.0); Calcium 11.1 mg/dL (8.6-10.3); Potassium 4.1 mEq/L (3.5-5.1); Total Protein 8.7 g/dL (6.4-8.9)
[2019-12-05] MEDS: Fenofibrate 54 MG TABLET PO SCH (20:10)
[2019-12-05] MEDS: Gabapentin 400 MG CAPSULE PO SCH (20:10)
[2019-12-05] MEDS: Melatonin 3 MG TABLET PO SCH (20:10)
[2019-12-05] MEDS: Acetaminophen 325 MG TABLET PO PRN (23:20)
[2019-12-06] MEDS: Ipratropium 1 PUFF INHALER IH SCH ×4 (04:45→22:30)
[2019-12-06] MEDS: *HR* Heparin 5,000 UNIT/ML VIAL SQ SCH ×2 (05:05→17:23)
[2019-12-06] MEDS: Budesonide/Formoterol 80/4.5 1 PUFF INH IH SCH ×2 (08:28→22:31)
[2019-12-06 09:49] LABS: Basophils % 0.2 %; Eosinophils % 0.1 %; Hematocrit 33.6 % (35.3-44.9); Hemoglobin 10.9 g/dL (11.5-15.4); Immature Granulocytes % 1.3 % (0-4); Lymphocytes # 1.1 K/mcL (0.6-4.6); Lymphocytes % 5.6 %; Mean Corpuscular HGB Conc 32.4 g/dL (31.6-35.5); Mean Corpuscular Hemoglobin 30.4 pg (28.0-33.3); Mean Corpuscular Volume 93.9 fL (83.0-100.0); Mean Platelet Volume 9.5 fL (9.4-12.4); Monocytes # 1.5 K/mcL (0.0-1.3); Monocytes % 7.8 %; Neutrophils # 16.7 K/mcL (1.6-8.9); Nucleated Red Blood Cells 0.1 /100 WBC (0); Platelet Count 795 K/mcL (140-400); Red Blood Count 3.58 M/mcL (3.82-4.97); White Blood Count 19.7 K/mcL (4.3-11.1)
[2019-12-06] MEDS: Aspirin Enteric Coated 81 MG Tablet PO SCH (10:13)
[2019-12-06] MEDS: Multivit/Ca/Min/Fe/FA 1 TAB TABLET PO SCH (10:14)
[2019-12-06] MEDS: Loratadine 10 MG TABLET PO SCH (10:14)
[2019-12-06] MEDS: Famotidine 20 MG TABLET PO SCH (10:14)
[2019-12-06] MEDS: polyethylene glycoL 3350 17 GM POWD.PACK PO SCH (10:14)
[2019-12-06] MEDS: Ascorbic Acid 500 MG TABLET PO SCH (10:14)
[2019-12-06] MEDS: Sennosides 8.6 MG TABLET PO SCH ×2 (10:14→20:47)
[2019-12-06] MEDS: amLODIPine 5 MG TABLET PO SCH (10:14)
[2019-12-06] MEDS: Insulin DETEMIR 100 UNIT/ML X5UNITS SQ SCH ×2 (10:15→20:52)
[2019-12-06] MEDS: Silvasorb 44.4 ML TUBE TP SCH (10:15)
[2019-12-06] MEDS: Cholecalciferol (D-3) 1,000 UNIT (25MCG) TABLET PO SCH (10:18)
[2019-12-06] MEDS: Insulin LISPRO 300 UNITS/3 ML VIAL SQ SCH ×6 (10:19→16:29)
[2019-12-06 10:22] LABS: Albumin 3.4 g/dL (3.5-5.7); Albumin/Globulin Ratio 0.7 (1.1-2.2); Bilirubin,Total 0.4 mg/dL (0.3-1.0); Calcium 10.5 mg/dL (8.6-10.3); Total Protein 8.4 g/dL (6.4-8.9)
[2019-12-06] MEDS: *HR* Metoprolol 5 MG/5 ML VIAL IVP PRN (14:12)
[2019-12-06] MEDS ORDERED: 0.9 % Sodium Chloride 1,000 ML IVC SCH (15:00)
[2019-12-06] MEDS: Fenofibrate 54 MG TABLET PO SCH (20:47)
[2019-12-06] MEDS: Melatonin 3 MG TABLET PO SCH (20:47)
[2019-12-06] MEDS: Acetaminophen 325 MG TABLET PO PRN (20:48)
[2019-12-06] MEDS: Gabapentin 300 MG CAPSULE PO SCH (20:48)
[2019-12-07] MEDS: Ipratropium 1 PUFF INHALER IH SCH ×4 (03:48→22:04)
[2019-12-07] MEDS: *HR* Heparin 5,000 UNIT/ML VIAL SQ SCH ×2 (05:59→16:32)
[2019-12-07 07:22] LABS: Basophils % 0.1 %; Eosinophils # 0.1 K/mcL (0.0-0.6); Eosinophils % 0.4 %; Hematocrit 31.9 % (35.3-44.9); Hemoglobin 10.1 g/dL (11.5-15.4); Immature Granulocytes % 1.1 % (0-4); Lymphocytes # 1.2 K/mcL (0.6-4.6); Lymphocytes % 5.3 %; Mean Corpuscular HGB Conc 31.7 g/dL (31.6-35.5); Mean Corpuscular Hemoglobin 30.1 pg (28.0-33.3); Mean Corpuscular Volume 95.2 fL (83.0-100.0); Mean Platelet Volume 9.6 fL (9.4-12.4); Monocytes # 1.9 K/mcL (0.0-1.3); Monocytes % 8.4 %; Neutrophils # 19.1 K/mcL (1.6-8.9); Platelet Count 867 K/mcL (140-400); Red Blood Count 3.35 M/mcL (3.82-4.97); Segmented Neutrophils % 84.7 %; White Blood Count 22.6 K/mcL (4.3-11.1)
[2019-12-07 07:46] LABS: Albumin 3.3 g/dL (3.5-5.7); Albumin/Globulin Ratio 0.7 (1.1-2.2); Bilirubin,Total 0.3 mg/dL (0.3-1.0); Calcium 10.5 mg/dL (8.6-10.3); Globulin 4.7 g/dL (2.4-3.5); Potassium 3.8 mEq/L (3.5-5.1)
[2019-12-07] MEDS: Insulin LISPRO 300 UNITS/3 ML VIAL SQ SCH ×6 (09:14→17:35)
[2019-12-07] MEDS: Insulin DETEMIR 100 UNIT/ML X5UNITS SQ SCH ×2 (09:15→21:49)
[2019-12-07] MEDS: Loratadine 10 MG TABLET PO SCH (09:18)
[2019-12-07] MEDS: polyethylene glycoL 3350 17 GM POWD.PACK PO SCH (09:18)
[2019-12-07] MEDS: Ascorbic Acid 500 MG TABLET PO SCH (09:18)
[2019-12-07] MEDS: amLODIPine 5 MG TABLET PO SCH (09:18)
[2019-12-07] MEDS: Aspirin Enteric Coated 81 MG Tablet PO SCH (09:18)
[2019-12-07] MEDS: Sennosides 8.6 MG TABLET PO SCH ×2 (09:18→22:30)
[2019-12-07] MEDS: Famotidine 20 MG TABLET PO SCH (09:19)
[2019-12-07] MEDS: Cholecalciferol (D-3) 1,000 UNIT (25MCG) TABLET PO SCH (09:19)
[2019-12-07] MEDS: Multivit/Ca/Min/Fe/FA 1 TAB TABLET PO SCH (09:19)
[2019-12-07] MEDS: Dexamethasone 4 MG/ML VIAL IVP SCH ×2 (09:22→21:48)
[2019-12-07] MEDS: Budesonide/Formoterol 80/4.5 1 PUFF INH IH SCH ×2 (10:20→22:04)
[2019-12-07] MEDS: Furosemide 20 MG/2 ML VIAL IVP SCH ×2 (16:33→21:48)
[2019-12-07] MEDS: Morphine Sulfate Oral CONC 10 MG/0.5 ML ORAL.SYG SL PRN (21:46)
[2019-12-07] MEDS: Melatonin 3 MG TABLET PO SCH (21:47)
[2019-12-07] MEDS: Gabapentin 300 MG CAPSULE PO SCH (21:47)
[2019-12-07] MEDS: Ondansetron 4 MG/2 ML VIAL IVP PRN (21:47)
[2019-12-07] MEDS: Fenofibrate 54 MG TABLET PO SCH (21:47)
[2019-12-08] MEDS: Ipratropium 1 PUFF INHALER IH SCH ×4 (03:44→22:21)
[2019-12-08] MEDS: Morphine Sulfate Oral CONC 10 MG/0.5 ML ORAL.SYG SL PRN (04:40)
[2019-12-08] MEDS: *HR* Heparin 5,000 UNIT/ML VIAL SQ SCH ×2 (04:40→16:48)
[2019-12-08] MEDS: Silvasorb 44.4 ML TUBE TP SCH ×2 (05:02→09:07)
[2019-12-08] MEDS: Ascorbic Acid 500 MG TABLET PO SCH (09:06)
[2019-12-08] MEDS: Dexamethasone 4 MG/ML VIAL IVP SCH ×2 (09:06→19:32)
[2019-12-08] MEDS: polyethylene glycoL 3350 17 GM POWD.PACK PO SCH (09:06)
[2019-12-08] MEDS: Sennosides 8.6 MG TABLET PO SCH ×2 (09:06→19:30)
[2019-12-08] MEDS: Loratadine 10 MG TABLET PO SCH (09:07)
[2019-12-08] MEDS: Aspirin Enteric Coated 81 MG Tablet PO SCH (09:07)
[2019-12-08] MEDS: amLODIPine 5 MG TABLET PO SCH (09:07)
[2019-12-08] MEDS: Cholecalciferol (D-3) 1,000 UNIT (25MCG) TABLET PO SCH (09:07)
[2019-12-08] MEDS: Multivit/Ca/Min/Fe/FA 1 TAB TABLET PO SCH (09:07)
[2019-12-08] MEDS: Furosemide 20 MG/2 ML VIAL IVP SCH ×2 (09:07→19:31)
[2019-12-08] MEDS: Famotidine 20 MG TABLET PO SCH (09:07)
[2019-12-08] MEDS: Insulin LISPRO 300 UNITS/3 ML VIAL SQ SCH ×3 (09:09→16:49)
[2019-12-08] MEDS: Insulin DETEMIR 100 UNIT/ML X5UNITS SQ SCH ×2 (09:09→19:32)
[2019-12-08 10:37] LABS: Hematocrit 34.1 % (35.3-44.9); Hemoglobin 10.4 g/dL (11.5-15.4); Mean Corpuscular HGB Conc 30.5 g/dL (31.6-35.5); Mean Corpuscular Hemoglobin 29.5 pg (28.0-33.3); Mean Corpuscular Volume 96.9 fL (83.0-100.0); Mean Platelet Volume 9.4 fL (9.4-12.4); Platelet Count 964 K/mcL (140-400); Red Blood Count 3.52 M/mcL (3.82-4.97); Red Cell Distribution Width 12.1 % (11.5-14.5); White Blood Count 23.3 K/mcL (4.3-11.1)
[2019-12-08 10:40] LABS: INR 1.6; Prothrombin Time 18.1 Seconds (9.4-12.1)
[2019-12-08] MEDS: Budesonide/Formoterol 80/4.5 1 PUFF INH IH SCH ×2 (10:56→22:21)
[2019-12-08 12:17] LABS: BUN/Creatinine Ratio 58 (6-26); Blood Urea Nitrogen 84 mg/dL (8-23); Calcium 10.9 mg/dL (8.6-10.3); Carbon Dioxide 30 mEq/L (23-29); Chloride 95 mEq/L (98-107); Ferritin 900 ng/mL (10-120); Glucose 115 mg/dL (70-105); Lactate Dehydrogenase 305 Units/L (140-271); Magnesium 2.7 mg/dL (1.6-2.6); Osmolality,Calculated 316 (280-300); Potassium 4.9 mEq/L (3.5-5.1); Sodium 140 mEq/L (136-145); eGFR For African Americans 43 (> 60); eGFR For Non-African Americans 36 (> 60)
[2019-12-08 12:30] LABS: C-Reactive Protein > 300 mg/L (Less than 10)
[2019-12-08] MEDS: Gabapentin 300 MG CAPSULE PO SCH (19:30)
[2019-12-08] MEDS: Fenofibrate 54 MG TABLET PO SCH (19:30)
[2019-12-08] MEDS: Melatonin 3 MG TABLET PO SCH (19:31)
[2019-12-08] MEDS: Acetaminophen 325 MG TABLET PO PRN (19:46)
[2019-12-09] MEDS: Acetaminophen 325 MG TABLET PO PRN (00:12)
[2019-12-09] MEDS: Ipratropium 1 PUFF INHALER IH SCH ×4 (03:46→21:31)
[2019-12-09] MEDS: *HR* Heparin 5,000 UNIT/ML VIAL SQ SCH ×2 (05:28→17:29)
[2019-12-09] MEDS: *HR* Metoprolol 5 MG/5 ML VIAL IVP PRN (05:35)
[2019-12-09] MEDS: polyethylene glycoL 3350 17 GM POWD.PACK PO SCH (08:31)
[2019-12-09] MEDS: Loratadine 10 MG TABLET PO SCH (08:32)
[2019-12-09] MEDS: amLODIPine 5 MG TABLET PO SCH (08:32)
[2019-12-09] MEDS: Famotidine 20 MG TABLET PO SCH (08:32)
[2019-12-09] MEDS: Cholecalciferol (D-3) 1,000 UNIT (25MCG) TABLET PO SCH (08:32)
[2019-12-09] MEDS: Sennosides 8.6 MG TABLET PO SCH ×2 (08:32→19:46)
[2019-12-09] MEDS: Ascorbic Acid 500 MG TABLET PO SCH (08:32)
[2019-12-09] MEDS: Aspirin Enteric Coated 81 MG Tablet PO SCH (08:32)
[2019-12-09] MEDS: Dexamethasone 4 MG/ML VIAL IVP SCH ×2 (08:32→19:44)
[2019-12-09] MEDS: Piperacillin/Tazobactam 3.375 GM in 0.9 % Sodium Chloride Mini Bag 100 ML IVPB SCH ×2 (08:33→15:42)
[2019-12-09] MEDS: Insulin LISPRO 300 UNITS/3 ML VIAL SQ SCH ×3 (08:33→15:53)
[2019-12-09] MEDS: Multivit/Ca/Min/Fe/FA 1 TAB TABLET PO SCH (08:33)
[2019-12-09] MEDS: Insulin DETEMIR 100 UNIT/ML X5UNITS SQ SCH ×2 (08:33→19:45)
[2019-12-09] MEDS: Silvasorb 44.4 ML TUBE TP SCH (08:34)
[2019-12-09] MEDS: Budesonide/Formoterol 80/4.5 1 PUFF INH IH SCH ×2 (10:34→21:31)
[2019-12-09] MEDS: Morphine Sulfate Oral CONC 10 MG/0.5 ML ORAL.SYG SL PRN (17:28)
[2019-12-09] MEDS: Gabapentin 300 MG CAPSULE PO SCH (19:46)
[2019-12-09] MEDS: Fenofibrate 54 MG TABLET PO SCH (19:46)
[2019-12-09] MEDS: Melatonin 3 MG TABLET PO SCH (19:47)
[2019-12-10] MEDS: Piperacillin/Tazobactam 3.375 GM in 0.9 % Sodium Chloride Mini Bag 100 ML IVPB SCH ×3 (00:12→16:39)
[2019-12-10] MEDS: *HR* Metoprolol 5 MG/5 ML VIAL IVP PRN (00:38)
[2019-12-10] MEDS: Ipratropium 1 PUFF INHALER IH SCH ×4 (03:47→21:38)
[2019-12-10] MEDS: *HR* Heparin 5,000 UNIT/ML VIAL SQ SCH ×2 (04:34→16:39)
[2019-12-10] MEDS: Acetaminophen 325 MG TABLET PO PRN (04:35)
[2019-12-10] MEDS: amLODIPine 5 MG TABLET PO SCH (04:35)
[2019-12-10 06:14] LABS: INR 2.3; Prothrombin Time 25.7 Seconds (9.4-12.1)
[2019-12-10 06:23] LABS: Alanine Aminotransferase 35 Units/L (7-52); Albumin 3.2 g/dL (3.5-5.7); Albumin/Globulin Ratio 0.6 (1.1-2.2); Alkaline Phosphatase 43 Units/L (34-104); Aspartate Amino Transferase 43 Units/L (13-39); BUN/Creatinine Ratio 50 (6-26); Bilirubin,Direct 0.1 mg/dL (0.0-0.2); Bilirubin,Indirect 0.2 mg/dL (0.0-1.0); Bilirubin,Total 0.3 mg/dL (0.3-1.0); Blood Urea Nitrogen 70 mg/dL (8-23); Calcium 10.3 mg/dL (8.6-10.3); Carbon Dioxide 27 mEq/L (23-29); Chloride 100 mEq/L (98-107); Globulin 5.2 g/dL (2.4-3.5); Glucose 116 mg/dL (70-105); Lactate Dehydrogenase 237 Units/L (140-271); Magnesium 2.6 mg/dL (1.6-2.6); Osmolality,Calculated 313 (280-300); Potassium 4.7 mEq/L (3.5-5.1); Sodium 141 mEq/L (136-145); Total Protein 8.4 g/dL (6.4-8.9); eGFR For African Americans 45 (> 60); eGFR For Non-African Americans 37 (> 60)
[2019-12-10 06:39] LABS: Ferritin 733 ng/mL (10-120)
[2019-12-10 07:35] LABS: Hematocrit 32.6 % (35.3-44.9); Mean Corpuscular HGB Conc 30.7 g/dL (31.6-35.5); Mean Corpuscular Hemoglobin 29.6 pg (28.0-33.3); Mean Corpuscular Volume 96.4 fL (83.0-100.0); Mean Platelet Volume 9.5 fL (9.4-12.4); Platelet Count 886 K/mcL (140-400); Red Blood Count 3.38 M/mcL (3.82-4.97); Red Cell Distribution Width 12.4 % (11.5-14.5); White Blood Count 18.9 K/mcL (4.3-11.1)
[2019-12-10] MEDS: Insulin LISPRO 300 UNITS/3 ML VIAL SQ SCH ×3 (08:32→16:50)
[2019-12-10] MEDS: Dexamethasone 4 MG/ML VIAL IVP SCH ×2 (08:40→22:02)
[2019-12-10] MEDS: Aspirin Enteric Coated 81 MG Tablet PO SCH (08:41)
[2019-12-10] MEDS: Famotidine 20 MG TABLET PO SCH (08:41)
[2019-12-10] MEDS: Cholecalciferol (D-3) 1,000 UNIT (25MCG) TABLET PO SCH (08:41)
[2019-12-10] MEDS: Sennosides 8.6 MG TABLET PO SCH ×2 (08:41→22:03)
[2019-12-10] MEDS: Loratadine 10 MG TABLET PO SCH (08:41)
[2019-12-10] MEDS: Ascorbic Acid 500 MG TABLET PO SCH (08:42)
[2019-12-10] MEDS: polyethylene glycoL 3350 17 GM POWD.PACK PO SCH (08:42)
[2019-12-10] MEDS: Multivit/Ca/Min/Fe/FA 1 TAB TABLET PO SCH (08:42)
[2019-12-10] MEDS: Insulin DETEMIR 100 UNIT/ML X5UNITS SQ SCH ×2 (08:44→22:03)
[2019-12-10] MEDS: Silvasorb 44.4 ML TUBE TP SCH (08:45)
[2019-12-10 09:33] LABS: C-Reactive Protein > 300 mg/L (Less than 10)
[2019-12-10] MEDS: Budesonide/Formoterol 80/4.5 1 PUFF INH IH SCH ×2 (09:57→21:38)
[2019-12-10] MEDS: Melatonin 3 MG TABLET PO SCH (22:03)
[2019-12-10] MEDS: Fenofibrate 54 MG TABLET PO SCH (22:03)
[2019-12-10] MEDS: Gabapentin 300 MG CAPSULE PO SCH (22:03)
[2019-12-10] MEDS: Morphine Sulfate Oral CONC 10 MG/0.5 ML ORAL.SYG SL PRN (22:04)
[2019-12-11] MEDS: Piperacillin/Tazobactam 3.375 GM in 0.9 % Sodium Chloride Mini Bag 100 ML IVPB SCH ×3 (01:16→16:11)
[2019-12-11] MEDS: Ipratropium 1 PUFF INHALER IH SCH ×4 (03:29→22:01)
[2019-12-11] MEDS: *HR* Heparin 5,000 UNIT/ML VIAL SQ SCH ×2 (05:10→16:13)
[2019-12-11] MEDS: Morphine Sulfate Oral CONC 10 MG/0.5 ML ORAL.SYG SL PRN ×2 (05:10→20:24)
[2019-12-11] MEDS: Famotidine 20 MG TABLET PO SCH (08:45)
[2019-12-11] MEDS: Sennosides 8.6 MG TABLET PO SCH ×2 (08:45→20:22)
[2019-12-11] MEDS: Aspirin Enteric Coated 81 MG Tablet PO SCH (08:46)
[2019-12-11] MEDS: amLODIPine 5 MG TABLET PO SCH (08:46)
[2019-12-11] MEDS: Cholecalciferol (D-3) 1,000 UNIT (25MCG) TABLET PO SCH (08:46)
[2019-12-11] MEDS: polyethylene glycoL 3350 17 GM POWD.PACK PO SCH (08:46)
[2019-12-11] MEDS: Ascorbic Acid 500 MG TABLET PO SCH (08:46)
[2019-12-11] MEDS: Multivit/Ca/Min/Fe/FA 1 TAB TABLET PO SCH (08:46)
[2019-12-11] MEDS: Loratadine 10 MG TABLET PO SCH (08:46)
[2019-12-11] MEDS: Insulin LISPRO 300 UNITS/3 ML VIAL SQ SCH ×3 (08:48→16:16)
[2019-12-11] MEDS: Dexamethasone 4 MG/ML VIAL IVP SCH ×2 (08:59→20:23)
[2019-12-11] MEDS: Insulin DETEMIR 100 UNIT/ML X5UNITS SQ SCH ×2 (09:00→20:23)
[2019-12-11] MEDS: Silvasorb 44.4 ML TUBE TP SCH (09:21)
[2019-12-11] MEDS: Budesonide/Formoterol 80/4.5 1 PUFF INH IH SCH ×2 (09:30→22:00)
[2019-12-11] MEDS ORDERED: *HR* Labetalol 20 MG/4 ML SYRINGE IVP ONE (15:24)
[2019-12-11] MEDS: Gabapentin 300 MG CAPSULE PO SCH (20:22)
[2019-12-11] MEDS: Melatonin 3 MG TABLET PO SCH (20:22)
[2019-12-11] MEDS: Fenofibrate 54 MG TABLET PO SCH (20:23)
[2019-12-12] MEDS: Piperacillin/Tazobactam 3.375 GM in 0.9 % Sodium Chloride Mini Bag 100 ML IVPB SCH ×3 (00:10→17:08)
[2019-12-12] MEDS: *HR* Labetalol 20 MG/4 ML SYRINGE IVP PRN (02:23)
[2019-12-12] MEDS: Morphine Sulfate Oral CONC 10 MG/0.5 ML ORAL.SYG SL PRN ×2 (02:23→20:27)
[2019-12-12] MEDS: Ipratropium 1 PUFF INHALER IH SCH ×4 (03:45→21:01)
[2019-12-12] MEDS: *HR* Heparin 5,000 UNIT/ML VIAL SQ SCH ×2 (06:18→17:08)
[2019-12-12 06:38] LABS: Mean Corpuscular Volume 100.3 fL (83.0-100.0); Mean Platelet Volume 9.2 fL (9.4-12.4)
[2019-12-12 06:40] LABS: Hematocrit 30.9 % (35.3-44.9); Hemoglobin 9.4 g/dL (11.5-15.4); Mean Corpuscular HGB Conc 30.4 g/dL (31.6-35.5); Mean Corpuscular Hemoglobin 30.5 pg (28.0-33.3); Platelet Count 767 K/mcL (140-400); Red Blood Count 3.08 M/mcL (3.82-4.97); Red Cell Distribution Width 12.6 % (11.5-14.5); White Blood Count 15.6 K/mcL (4.3-11.1)
[2019-12-12 06:56] LABS: BUN/Creatinine Ratio 48 (6-26); Blood Urea Nitrogen 61 mg/dL (8-23); Calcium 10.2 mg/dL (8.6-10.3); Carbon Dioxide 30 mEq/L (23-29); Chloride 105 mEq/L (98-107); Glucose 175 mg/dL (70-105); Lactate Dehydrogenase 190 Units/L (140-271); Magnesium 2.7 mg/dL (1.6-2.6); Osmolality,Calculated 324 (280-300); Potassium 4.7 mEq/L (3.5-5.1); Sodium 146 mEq/L (136-145); eGFR For African Americans 51 (> 60); eGFR For Non-African Americans 42 (> 60)
[2019-12-12 06:57] LABS: INR 2.6; Prothrombin Time 29.1 Seconds (9.4-12.1)
[2019-12-12 07:12] LABS: Ferritin 821 ng/mL (10-120)
[2019-12-12 07:49] LABS: C-Reactive Protein > 300 mg/L (Less than 10)
[2019-12-12] MEDS: Dexamethasone 4 MG/ML VIAL IVP SCH ×2 (08:53→20:27)
[2019-12-12] MEDS: Ascorbic Acid 500 MG TABLET PO SCH (08:53)
[2019-12-12] MEDS: Sennosides 8.6 MG TABLET PO SCH ×2 (08:53→20:28)
[2019-12-12] MEDS: Aspirin Enteric Coated 81 MG Tablet PO SCH (08:53)
[2019-12-12] MEDS: amLODIPine 5 MG TABLET PO SCH (08:53)
[2019-12-12] MEDS: Multivit/Ca/Min/Fe/FA 1 TAB TABLET PO SCH (08:53)
[2019-12-12] MEDS: Famotidine 20 MG TABLET PO SCH (08:53)
[2019-12-12] MEDS: Loratadine 10 MG TABLET PO SCH (08:53)
[2019-12-12] MEDS: polyethylene glycoL 3350 17 GM POWD.PACK PO SCH (08:53)
[2019-12-12] MEDS: Cholecalciferol (D-3) 1,000 UNIT (25MCG) TABLET PO SCH (08:54)
[2019-12-12] MEDS: Silvasorb 44.4 ML TUBE TP SCH (08:59)
[2019-12-12] MEDS: Insulin DETEMIR 100 UNIT/ML X5UNITS SQ SCH ×2 (09:10→20:27)
[2019-12-12] MEDS: Insulin LISPRO 300 UNITS/3 ML VIAL SQ SCH ×3 (09:10→17:09)
[2019-12-12] MEDS: Budesonide/Formoterol 80/4.5 1 PUFF INH IH SCH ×2 (11:32→21:01)
[2019-12-12] MEDS: Melatonin 3 MG TABLET PO SCH (20:28)
[2019-12-12] MEDS: Gabapentin 300 MG CAPSULE PO SCH (20:28)
[2019-12-12] MEDS: Fenofibrate 54 MG TABLET PO SCH (20:29)
[2019-12-13] MEDS: Piperacillin/Tazobactam 3.375 GM in 0.9 % Sodium Chloride Mini Bag 100 ML IVPB SCH ×4 (00:34→23:52)
[2019-12-13] MEDS: Ipratropium 1 PUFF INHALER IH SCH ×4 (03:18→21:22)
[2019-12-13] MEDS: Acetaminophen 325 MG TABLET PO PRN (04:43)
[2019-12-13] MEDS: *HR* Heparin 5,000 UNIT/ML VIAL SQ SCH (04:43)
[2019-12-13] MEDS: Morphine Sulfate Oral CONC 10 MG/0.5 ML ORAL.SYG SL PRN (04:43)
[2019-12-13 06:57] LABS: Hematocrit 31.4 % (35.3-44.9); Hemoglobin 9.3 g/dL (11.5-15.4); Mean Corpuscular HGB Conc 29.6 g/dL (31.6-35.5); Mean Corpuscular Hemoglobin 29.4 pg (28.0-33.3); Mean Corpuscular Volume 99.4 fL (83.0-100.0); Platelet Count 730 K/mcL (140-400); Red Blood Count 3.16 M/mcL (3.82-4.97); Red Cell Distribution Width 12.6 % (11.5-14.5); White Blood Count 15.4 K/mcL (4.3-11.1)
[2019-12-13 07:21] LABS: Calcium 9.6 mg/dL (8.6-10.3); Magnesium 2.4 mg/dL (1.6-2.6); Potassium 4.4 mEq/L (3.5-5.1)
[2019-12-13] MEDS: amLODIPine 5 MG TABLET PO SCH (07:37)
[2019-12-13] MEDS: Multivit/Ca/Min/Fe/FA 1 TAB TABLET PO SCH (07:37)
[2019-12-13] MEDS: Cholecalciferol (D-3) 1,000 UNIT (25MCG) TABLET PO SCH (07:37)
[2019-12-13] MEDS: Famotidine 20 MG TABLET PO SCH (07:37)
[2019-12-13] MEDS: Sennosides 8.6 MG TABLET PO SCH ×2 (07:37→21:19)
[2019-12-13] MEDS: Loratadine 10 MG TABLET PO SCH (07:37)
[2019-12-13] MEDS: Ascorbic Acid 500 MG TABLET PO SCH (07:37)
[2019-12-13] MEDS: Aspirin Enteric Coated 81 MG Tablet PO SCH (07:37)
[2019-12-13] MEDS: polyethylene glycoL 3350 17 GM POWD.PACK PO SCH (07:38)
[2019-12-13] MEDS: Dexamethasone 4 MG/ML VIAL IVP SCH ×2 (07:38→21:16)
[2019-12-13] MEDS: Insulin DETEMIR 100 UNIT/ML X5UNITS SQ SCH ×2 (07:48→21:19)
[2019-12-13] MEDS: Insulin LISPRO 300 UNITS/3 ML VIAL SQ SCH ×3 (08:23→16:07)
[2019-12-13] MEDS: Budesonide/Formoterol 80/4.5 1 PUFF INH IH SCH ×2 (10:48→21:24)
[2019-12-13] MEDS: Silvasorb 44.4 ML TUBE TP SCH (16:27)
[2019-12-13] MEDS: Melatonin 3 MG TABLET PO SCH (21:18)
[2019-12-13] MEDS: Gabapentin 300 MG CAPSULE PO SCH (21:19)
[2019-12-13] MEDS: Fenofibrate 54 MG TABLET PO SCH (21:19)
[2019-12-14] MEDS: Ipratropium 1 PUFF INHALER IH SCH ×4 (04:00→21:58)
[2019-12-14] MEDS: *HR* Enoxaparin 40 MG/0.4 ML SYRINGE SQ SCH (06:09)
[2019-12-14 09:03] LABS: Hematocrit 30.4 % (35.3-44.9); Mean Corpuscular HGB Conc 29.6 g/dL (31.6-35.5); Mean Corpuscular Hemoglobin 29.3 pg (28.0-33.3); Platelet Count 687 K/mcL (140-400); Red Blood Count 3.07 M/mcL (3.82-4.97); Red Cell Distribution Width 12.7 % (11.5-14.5); White Blood Count 16.6 K/mcL (4.3-11.1)
[2019-12-14 09:20] LABS: BUN/Creatinine Ratio 49 (6-26); Blood Urea Nitrogen 45 mg/dL (8-23); Calcium 9.5 mg/dL (8.6-10.3); Carbon Dioxide 29 mEq/L (23-29); Chloride 107 mEq/L (98-107); Glucose 134 mg/dL (70-105); Osmolality,Calculated 314 (280-300); Potassium 4.2 mEq/L (3.5-5.1); Sodium 145 mEq/L (136-145); eGFR For African Americans > 60 (> 60); eGFR For Non-African Americans > 60 (> 60)
[2019-12-14] MEDS: Cholecalciferol (D-3) 1,000 UNIT (25MCG) TABLET PO SCH (09:26)
[2019-12-14] MEDS: amLODIPine 5 MG TABLET PO SCH (09:27)
[2019-12-14] MEDS: Ascorbic Acid 500 MG TABLET PO SCH (09:27)
[2019-12-14] MEDS: Aspirin Enteric Coated 81 MG Tablet PO SCH (09:27)
[2019-12-14] MEDS: Sennosides 8.6 MG TABLET PO SCH ×2 (09:27→20:57)
[2019-12-14] MEDS: Dexamethasone 4 MG/ML VIAL IVP SCH ×2 (09:27→20:55)
[2019-12-14] MEDS: Loratadine 10 MG TABLET PO SCH (09:27)
[2019-12-14] MEDS: Famotidine 20 MG TABLET PO SCH (09:27)
[2019-12-14] MEDS: Insulin DETEMIR 100 UNIT/ML X5UNITS SQ SCH ×2 (09:28→20:56)
[2019-12-14] MEDS: Insulin LISPRO 300 UNITS/3 ML VIAL SQ SCH ×3 (09:28→17:13)
[2019-12-14] MEDS: Piperacillin/Tazobactam 3.375 GM in 0.9 % Sodium Chloride Mini Bag 100 ML IVPB SCH ×2 (09:28→16:36)
[2019-12-14] MEDS: polyethylene glycoL 3350 17 GM POWD.PACK PO SCH (09:29)
[2019-12-14] MEDS: Budesonide/Formoterol 80/4.5 1 PUFF INH IH SCH ×2 (09:48→21:58)
[2019-12-14] MEDS: Multivit/Ca/Min/Fe/FA 1 TAB TABLET PO SCH (10:08)
[2019-12-14] MEDS ORDERED: Furosemide 20 MG/2 ML VIAL IVP ONE (10:19)
[2019-12-14] MEDS: Silvasorb 44.4 ML TUBE TP SCH (12:32)
[2019-12-14] MEDS: Gabapentin 300 MG CAPSULE PO SCH (20:57)
[2019-12-14] MEDS: Melatonin 3 MG TABLET PO SCH (20:57)
[2019-12-14] MEDS: Fenofibrate 54 MG TABLET PO SCH (20:57)
[2019-12-15] MEDS: Piperacillin/Tazobactam 3.375 GM in 0.9 % Sodium Chloride Mini Bag 100 ML IVPB SCH ×3 (00:50→16:03)
[2019-12-15] MEDS: Ipratropium 1 PUFF INHALER IH SCH ×4 (03:45→22:16)
[2019-12-15] MEDS: *HR* Enoxaparin 40 MG/0.4 ML SYRINGE SQ SCH (06:04)
[2019-12-15] MEDS: polyethylene glycoL 3350 17 GM POWD.PACK PO SCH (08:21)
[2019-12-15] MEDS: amLODIPine 5 MG TABLET PO SCH (08:22)
[2019-12-15] MEDS: Sennosides 8.6 MG TABLET PO SCH ×2 (08:22→21:34)
[2019-12-15] MEDS: Cholecalciferol (D-3) 1,000 UNIT (25MCG) TABLET PO SCH (08:22)
[2019-12-15] MEDS: Ascorbic Acid 500 MG TABLET PO SCH (08:22)
[2019-12-15] MEDS: Multivit/Ca/Min/Fe/FA 1 TAB TABLET PO SCH (08:22)
[2019-12-15] MEDS: Aspirin Enteric Coated 81 MG Tablet PO SCH (08:22)
[2019-12-15] MEDS: Famotidine 20 MG TABLET PO SCH (08:22)
[2019-12-15] MEDS: Loratadine 10 MG TABLET PO SCH (08:23)
[2019-12-15] MEDS: Dexamethasone 4 MG/ML VIAL IVP SCH (08:25)
[2019-12-15] MEDS: Insulin LISPRO 300 UNITS/3 ML VIAL SQ SCH ×3 (09:06→16:28)
[2019-12-15] MEDS: Insulin DETEMIR 100 UNIT/ML X5UNITS SQ SCH ×2 (09:07→21:32)
[2019-12-15] MEDS: Budesonide/Formoterol 80/4.5 1 PUFF INH IH SCH ×2 (09:32→22:16)
[2019-12-15 09:48] LABS: Mean Corpuscular Volume 99.7 fL (83.0-100.0); Mean Platelet Volume 9.4 fL (9.4-12.4)
[2019-12-15 09:50] LABS: Hematocrit 33.2 % (35.3-44.9); Mean Corpuscular HGB Conc 30.1 g/dL (31.6-35.5); Platelet Count 761 K/mcL (140-400); Red Blood Count 3.33 M/mcL (3.82-4.97); Red Cell Distribution Width 12.6 % (11.5-14.5); White Blood Count 26.1 K/mcL (4.3-11.1)
[2019-12-15 10:06] LABS: BUN/Creatinine Ratio 34 (6-26); Blood Urea Nitrogen 34 mg/dL (8-23); Carbon Dioxide 28 mEq/L (23-29); Chloride 104 mEq/L (98-107); Glucose 102 mg/dL (70-105); Osmolality,Calculated 306 (280-300); Potassium 3.9 mEq/L (3.5-5.1); Sodium 144 mEq/L (136-145); eGFR For African Americans > 60 (> 60); eGFR For Non-African Americans 54 (> 60)
[2019-12-15] MEDS: *HR* Labetalol 20 MG/4 ML SYRINGE IVP PRN (11:39)
[2019-12-15] MEDS: Acetaminophen 325 MG TABLET PO PRN ×2 (11:40→18:39)
[2019-12-15] MEDS: Morphine Sulfate Oral CONC 10 MG/0.5 ML ORAL.SYG SL PRN (11:40)
[2019-12-15] MEDS: Silvasorb 44.4 ML TUBE TP SCH (11:42)
[2019-12-15] MEDS ORDERED: Furosemide 40 MG/4 ML VIAL IVP ONE (11:48)
[2019-12-15] MEDS: Vancomycin 1,250 MG/262.5 ML IV.SOLN IVPB SCH (13:09)
[2019-12-15] MEDS: Melatonin 3 MG TABLET PO SCH (21:33)
[2019-12-15] MEDS: Gabapentin 300 MG CAPSULE PO SCH (21:34)
[2019-12-15] MEDS: Fenofibrate 54 MG TABLET PO SCH (21:34)
[2019-12-16] MEDS: Piperacillin/Tazobactam 3.375 GM in 0.9 % Sodium Chloride Mini Bag 100 ML IVPB SCH ×2 (00:27→09:16)
[2019-12-16 02:47] LABS: Hematocrit 27.4 % (35.3-44.9); Hemoglobin 8.5 g/dL (11.5-15.4); Mean Corpuscular Hemoglobin 30.2 pg (28.0-33.3); Mean Corpuscular Volume 97.5 fL (83.0-100.0); Mean Platelet Volume 9.1 fL (9.4-12.4); Platelet Count 634 K/mcL (140-400); Red Blood Count 2.81 M/mcL (3.82-4.97); Red Cell Distribution Width 12.8 % (11.5-14.5); White Blood Count 17.3 K/mcL (4.3-11.1)
[2019-12-16] MEDS: Ipratropium 1 PUFF INHALER IH SCH ×4 (04:23→22:10)
[2019-12-16 04:33] LABS: BUN/Creatinine Ratio 36 (6-26); Blood Urea Nitrogen 31 mg/dL (8-23); Calcium 8.7 mg/dL (8.6-10.3); Carbon Dioxide 28 mEq/L (23-29); Chloride 102 mEq/L (98-107); Glucose 157 mg/dL (70-105); Osmolality,Calculated 304 (280-300); Sodium 142 mEq/L (136-145); eGFR For African Americans > 60 (> 60); eGFR For Non-African Americans > 60 (> 60)
[2019-12-16] MEDS: *HR* Enoxaparin 40 MG/0.4 ML SYRINGE SQ SCH (05:18)
[2019-12-16] MEDS: Dexamethasone 4 MG/ML VIAL IVP SCH (09:17)
[2019-12-16] MEDS: Cholecalciferol (D-3) 1,000 UNIT (25MCG) TABLET PO SCH (09:17)
[2019-12-16] MEDS: Insulin LISPRO 300 UNITS/3 ML VIAL SQ SCH ×3 (09:17→18:20)
[2019-12-16] MEDS: Aspirin Enteric Coated 81 MG Tablet PO SCH (09:18)
[2019-12-16] MEDS: amLODIPine 5 MG TABLET PO SCH (09:18)
[2019-12-16] MEDS: Ascorbic Acid 500 MG TABLET PO SCH (09:18)
[2019-12-16] MEDS: Sennosides 8.6 MG TABLET PO SCH ×2 (09:18→19:53)
[2019-12-16] MEDS: polyethylene glycoL 3350 17 GM POWD.PACK PO SCH (09:18)
[2019-12-16] MEDS: Multivit/Ca/Min/Fe/FA 1 TAB TABLET PO SCH (09:18)
[2019-12-16] MEDS: Loratadine 10 MG TABLET PO SCH (09:18)
[2019-12-16] MEDS: Famotidine 20 MG TABLET PO SCH (09:18)
[2019-12-16] MEDS: Insulin DETEMIR 100 UNIT/ML X5UNITS SQ SCH ×2 (09:20→20:12)
[2019-12-16] MEDS: Silvasorb 44.4 ML TUBE TP SCH (09:22)
[2019-12-16] MEDS: Budesonide/Formoterol 80/4.5 1 PUFF INH IH SCH ×2 (10:05→22:10)
[2019-12-16] MEDS: Furosemide 40 MG/4 ML VIAL IVP SCH ×2 (13:02→18:19)
[2019-12-16] MEDS: Vancomycin 1,250 MG/262.5 ML IV.SOLN IVPB SCH (13:03)
[2019-12-16] MEDS: Fenofibrate 54 MG TABLET PO SCH (19:52)
[2019-12-16] MEDS: Gabapentin 300 MG CAPSULE PO SCH (19:52)
[2019-12-16] MEDS: Melatonin 3 MG TABLET PO SCH (19:52)
[2019-12-17] MEDS ORDERED: *HR* Metoprolol 5 MG/5 ML VIAL IVP ONE (00:44)
[2019-12-17] MEDS: Ipratropium 1 PUFF INHALER IH SCH ×4 (04:18→21:42)
[2019-12-17] MEDS: *HR* Enoxaparin 40 MG/0.4 ML SYRINGE SQ SCH (05:34)
[2019-12-17 06:36] LABS: Hematocrit 29.4 % (35.3-44.9); Mean Corpuscular HGB Conc 30.6 g/dL (31.6-35.5); Mean Corpuscular Hemoglobin 29.9 pg (28.0-33.3); Mean Corpuscular Volume 97.7 fL (83.0-100.0); Mean Platelet Volume 9.3 fL (9.4-12.4); Platelet Count 698 K/mcL (140-400); Red Blood Count 3.01 M/mcL (3.82-4.97); Red Cell Distribution Width 12.8 % (11.5-14.5); White Blood Count 16.8 K/mcL (4.3-11.1)
[2019-12-17 06:58] LABS: BUN/Creatinine Ratio 34 (6-26); Blood Urea Nitrogen 28 mg/dL (8-23); Carbon Dioxide 26 mEq/L (23-29); Chloride 98 mEq/L (98-107); Glucose 111 mg/dL (70-105); Osmolality,Calculated 296 (280-300); Potassium 3.8 mEq/L (3.5-5.1); Sodium 140 mEq/L (136-145); eGFR For African Americans > 60 (> 60); eGFR For Non-African Americans > 60 (> 60)
[2019-12-17] MEDS: Budesonide/Formoterol 80/4.5 1 PUFF INH IH SCH ×2 (08:01→21:42)
[2019-12-17] MEDS: Insulin DETEMIR 100 UNIT/ML X5UNITS SQ SCH ×2 (09:27→23:47)
[2019-12-17] MEDS: Furosemide 40 MG/4 ML VIAL IVP SCH ×2 (09:27→17:12)
[2019-12-17] MEDS: polyethylene glycoL 3350 17 GM POWD.PACK PO SCH (09:27)
[2019-12-17] MEDS: Aspirin Enteric Coated 81 MG Tablet PO SCH (09:27)
[2019-12-17] MEDS: Famotidine 20 MG TABLET PO SCH (09:28)
[2019-12-17] MEDS: Multivit/Ca/Min/Fe/FA 1 TAB TABLET PO SCH (09:28)
[2019-12-17] MEDS: Cholecalciferol (D-3) 1,000 UNIT (25MCG) TABLET PO SCH (09:28)
[2019-12-17] MEDS: Sennosides 8.6 MG TABLET PO SCH ×2 (09:29→19:32)
[2019-12-17] MEDS: amLODIPine 5 MG TABLET PO SCH (09:29)
[2019-12-17] MEDS: Ascorbic Acid 500 MG TABLET PO SCH (09:29)
[2019-12-17] MEDS: Loratadine 10 MG TABLET PO SCH (09:29)
[2019-12-17] MEDS: Dexamethasone 4 MG/ML VIAL IVP SCH (09:30)
[2019-12-17] MEDS: Insulin LISPRO 300 UNITS/3 ML VIAL SQ SCH ×3 (09:31→17:12)
[2019-12-17] MEDS: Silvasorb 44.4 ML TUBE TP SCH (09:31)
[2019-12-17] MEDS: Vancomycin 1,500 MG/265 ML IV.SOLN IVPB SCH (13:50)
[2019-12-17] MEDS: Fenofibrate 54 MG TABLET PO SCH (19:33)
[2019-12-17] MEDS: Melatonin 3 MG TABLET PO SCH (19:33)
[2019-12-17] MEDS: Gabapentin 300 MG CAPSULE PO SCH (19:33)
[2019-12-18] MEDS: Morphine Sulfate Oral CONC 10 MG/0.5 ML ORAL.SYG SL PRN ×2 (01:24→11:32)
[2019-12-18] MEDS: Ipratropium 1 PUFF INHALER IH SCH ×4 (04:13→21:29)
[2019-12-18] MEDS: *HR* Enoxaparin 40 MG/0.4 ML SYRINGE SQ SCH (05:32)
[2019-12-18] MEDS: Ascorbic Acid 500 MG TABLET PO SCH (08:48)
[2019-12-18] MEDS: Multivit/Ca/Min/Fe/FA 1 TAB TABLET PO SCH (08:48)
[2019-12-18] MEDS: Aspirin Enteric Coated 81 MG Tablet PO SCH (08:48)
[2019-12-18] MEDS: Famotidine 20 MG TABLET PO SCH (08:48)
[2019-12-18] MEDS: Insulin DETEMIR 100 UNIT/ML X5UNITS SQ SCH ×2 (08:48→19:42)
[2019-12-18] MEDS: Sennosides 8.6 MG TABLET PO SCH ×2 (08:48→19:50)
[2019-12-18] MEDS: Cholecalciferol (D-3) 1,000 UNIT (25MCG) TABLET PO SCH (08:48)
[2019-12-18] MEDS: Loratadine 10 MG TABLET PO SCH (08:48)
[2019-12-18] MEDS: amLODIPine 5 MG TABLET PO SCH (08:48)
[2019-12-18] MEDS: Insulin LISPRO 300 UNITS/3 ML VIAL SQ SCH ×3 (08:49→16:53)
[2019-12-18] MEDS: Dexamethasone 4 MG/ML VIAL IVP SCH (08:49)
[2019-12-18] MEDS: Silvasorb 44.4 ML TUBE TP SCH (08:49)
[2019-12-18] MEDS: Furosemide 40 MG/4 ML VIAL IVP SCH ×2 (08:49→16:48)
[2019-12-18] MEDS: polyethylene glycoL 3350 17 GM POWD.PACK PO SCH (08:49)
[2019-12-18 09:25] LABS: BUN/Creatinine Ratio 36 (6-26); Blood Urea Nitrogen 31 mg/dL (8-23); eGFR For African Americans > 60 (> 60); eGFR For Non-African Americans > 60 (> 60)
[2019-12-18] MEDS: Budesonide/Formoterol 80/4.5 1 PUFF INH IH SCH ×2 (09:57→21:29)
[2019-12-18] MEDS: Vancomycin 1,500 MG/265 ML IV.SOLN IVPB SCH (13:05)
[2019-12-18] MEDS: Gabapentin 300 MG CAPSULE PO SCH (19:50)
[2019-12-18] MEDS: Melatonin 3 MG TABLET PO SCH (19:50)
[2019-12-18] MEDS: Fenofibrate 54 MG TABLET PO SCH (19:50)
[2019-12-19] MEDS: Ipratropium 1 PUFF INHALER IH SCH ×4 (03:32→21:38)
[2019-12-19] MEDS: *HR* Enoxaparin 40 MG/0.4 ML SYRINGE SQ SCH (04:18)
[2019-12-19 07:19] LABS: Hematocrit 30.2 % (35.3-44.9); Hemoglobin 9.1 g/dL (11.5-15.4); Mean Corpuscular HGB Conc 30.1 g/dL (31.6-35.5); Mean Corpuscular Hemoglobin 29.5 pg (28.0-33.3); Mean Corpuscular Volume 98.1 fL (83.0-100.0); Mean Platelet Volume 9.4 fL (9.4-12.4); Platelet Count 826 K/mcL (140-400); Red Blood Count 3.08 M/mcL (3.82-4.97); Red Cell Distribution Width 13.2 % (11.5-14.5)
[2019-12-19 07:46] LABS: BUN/Creatinine Ratio 38 (6-26); Blood Urea Nitrogen 38 mg/dL (8-23); Calcium 9.3 mg/dL (8.6-10.3); Carbon Dioxide 29 mEq/L (23-29); Chloride 96 mEq/L (98-107); Glucose 219 mg/dL (70-105); Osmolality,Calculated 304 (280-300); Potassium 3.8 mEq/L (3.5-5.1); Sodium 139 mEq/L (136-145); eGFR For African Americans > 60 (> 60); eGFR For Non-African Americans 55 (> 60)
[2019-12-19] MEDS: polyethylene glycoL 3350 17 GM POWD.PACK PO SCH ×2 (10:00→10:12)
[2019-12-19] MEDS: Insulin LISPRO 300 UNITS/3 ML VIAL SQ SCH ×3 (10:09→16:21)
[2019-12-19] MEDS: Insulin DETEMIR 100 UNIT/ML X5UNITS SQ SCH ×2 (10:09→21:44)
[2019-12-19] MEDS: Ascorbic Acid 500 MG TABLET PO SCH (10:12)
[2019-12-19] MEDS: Aspirin Enteric Coated 81 MG Tablet PO SCH (10:12)
[2019-12-19] MEDS: Loratadine 10 MG TABLET PO SCH (10:12)
[2019-12-19] MEDS: amLODIPine 5 MG TABLET PO SCH (10:12)
[2019-12-19] MEDS: Famotidine 20 MG TABLET PO SCH (10:12)
[2019-12-19] MEDS: Sennosides 8.6 MG TABLET PO SCH ×2 (10:12→21:43)
[2019-12-19] MEDS: Multivit/Ca/Min/Fe/FA 1 TAB TABLET PO SCH (10:12)
[2019-12-19] MEDS: Dexamethasone 4 MG/ML VIAL IVP SCH (10:12)
[2019-12-19] MEDS: Cholecalciferol (D-3) 1,000 UNIT (25MCG) TABLET PO SCH (10:12)
[2019-12-19] MEDS: Furosemide 40 MG/4 ML VIAL IVP SCH ×2 (10:14→16:19)
[2019-12-19] MEDS: Budesonide/Formoterol 80/4.5 1 PUFF INH IH SCH ×2 (10:44→21:39)
[2019-12-19] MEDS: Vancomycin 1,500 MG/265 ML IV.SOLN IVPB SCH (12:18)
[2019-12-19] MEDS: *HR* Labetalol 20 MG/4 ML SYRINGE IVP PRN (12:22)
[2019-12-19] MEDS: Morphine Sulfate Oral CONC 10 MG/0.5 ML ORAL.SYG SL PRN (12:37)
[2019-12-19] MEDS: Acetaminophen 325 MG TABLET PO PRN (16:19)
[2019-12-19] MEDS: Melatonin 3 MG TABLET PO SCH (21:43)
[2019-12-19] MEDS: Silvasorb 44.4 ML TUBE TP SCH ×2 (21:43→22:40)
[2019-12-19] MEDS: Fenofibrate 54 MG TABLET PO SCH (21:43)
[2019-12-19] MEDS: Gabapentin 300 MG CAPSULE PO SCH (21:44)
[2019-12-20] MEDS: Ipratropium 1 PUFF INHALER IH SCH ×4 (03:35→22:10)
[2019-12-20] MEDS: *HR* Enoxaparin 40 MG/0.4 ML SYRINGE SQ SCH (05:39)
[2019-12-20] MEDS: Insulin LISPRO 300 UNITS/3 ML VIAL SQ SCH ×3 (07:35→18:36)
[2019-12-20] MEDS: Budesonide/Formoterol 80/4.5 1 PUFF INH IH SCH ×2 (09:50→22:10)
[2019-12-20] MEDS: Morphine Sulfate Oral CONC 10 MG/0.5 ML ORAL.SYG SL PRN (10:56)
[2019-12-20] MEDS: Furosemide 40 MG/4 ML VIAL IVP SCH (10:56)
[2019-12-20] MEDS: Cholecalciferol (D-3) 1,000 UNIT (25MCG) TABLET PO SCH (10:58)
[2019-12-20] MEDS: Ascorbic Acid 500 MG TABLET PO SCH (10:58)
[2019-12-20] MEDS: Aspirin Enteric Coated 81 MG Tablet PO SCH (10:58)
[2019-12-20] MEDS: Sennosides 8.6 MG TABLET PO SCH ×2 (10:58→20:07)
[2019-12-20] MEDS: Multivit/Ca/Min/Fe/FA 1 TAB TABLET PO SCH (10:58)
[2019-12-20] MEDS: amLODIPine 5 MG TABLET PO SCH (10:58)
[2019-12-20] MEDS: Famotidine 20 MG TABLET PO SCH (10:58)
[2019-12-20] MEDS: Loratadine 10 MG TABLET PO SCH (10:58)
[2019-12-20] MEDS: Dexamethasone 4 MG/ML VIAL IVP SCH (10:59)
[2019-12-20] MEDS: Insulin DETEMIR 100 UNIT/ML X5UNITS SQ SCH ×2 (10:59→20:07)
[2019-12-20] MEDS: polyethylene glycoL 3350 17 GM POWD.PACK PO SCH (10:59)
[2019-12-20] MEDS: Silvasorb 44.4 ML TUBE TP SCH (11:00)
[2019-12-20 11:26] LABS: Hematocrit 27.5 % (35.3-44.9); Hemoglobin 8.5 g/dL (11.5-15.4); Mean Corpuscular HGB Conc 30.9 g/dL (31.6-35.5); Mean Corpuscular Hemoglobin 30.1 pg (28.0-33.3); Mean Corpuscular Volume 97.5 fL (83.0-100.0); Mean Platelet Volume 9.2 fL (9.4-12.4); Platelet Count 682 K/mcL (140-400); Red Blood Count 2.82 M/mcL (3.82-4.97); Red Cell Distribution Width 13.4 % (11.5-14.5); White Blood Count 14.9 K/mcL (4.3-11.1)
[2019-12-20] MEDS ORDERED: Leptospermum Honey GEL 1 APPL/5 ML MLS TP SCH (13:00)
[2019-12-20 14:15] LABS: BUN/Creatinine Ratio 43 (6-26); Blood Urea Nitrogen 36 mg/dL (8-23); Calcium 8.9 mg/dL (8.6-10.3); Carbon Dioxide 28 mEq/L (23-29); Chloride 93 mEq/L (98-107); Glucose 160 mg/dL (70-105); Osmolality,Calculated 290 (280-300); Potassium 3.4 mEq/L (3.5-5.1); Sodium 134 mEq/L (136-145); eGFR For African Americans > 60 (> 60); eGFR For Non-African Americans > 60 (> 60)
[2019-12-20] MEDS: Haloperidol Lactate 5 MG/ML VIAL IVP PRN (18:32)
[2019-12-20] MEDS: Furosemide 60 MG in 0.9 % Sodium Chloride 50 ML IVPB SCH (18:37)
[2019-12-20] MEDS: Leptospermum Honey Gel 44 ML TUBE TP SCH (19:26)
[2019-12-20] MEDS: Fenofibrate 54 MG TABLET PO SCH (20:07)
[2019-12-20] MEDS: Melatonin 3 MG TABLET PO SCH (20:07)
[2019-12-20] MEDS: Gabapentin 300 MG CAPSULE PO SCH (20:07)
[2019-12-21] MEDS: Ipratropium 1 PUFF INHALER IH SCH ×4 (03:52→21:43)
[2019-12-21] MEDS: Morphine Sulfate Oral CONC 10 MG/0.5 ML ORAL.SYG SL PRN (04:08)
[2019-12-21] MEDS: Haloperidol Lactate 5 MG/ML VIAL IVP PRN (04:08)
[2019-12-21] MEDS: *HR* Enoxaparin 40 MG/0.4 ML SYRINGE SQ SCH (05:21)
[2019-12-21] MEDS: Sennosides 8.6 MG TABLET PO SCH ×2 (08:11→21:23)
[2019-12-21] MEDS: amLODIPine 5 MG TABLET PO SCH (08:12)
[2019-12-21] MEDS: Ascorbic Acid 500 MG TABLET PO SCH (08:12)
[2019-12-21] MEDS: Dexamethasone 4 MG/ML VIAL IVP SCH (08:12)
[2019-12-21] MEDS: Aspirin Enteric Coated 81 MG Tablet PO SCH (08:12)
[2019-12-21] MEDS: Loratadine 10 MG TABLET PO SCH (08:13)
[2019-12-21] MEDS: Multivit/Ca/Min/Fe/FA 1 TAB TABLET PO SCH (08:13)
[2019-12-21] MEDS: polyethylene glycoL 3350 17 GM POWD.PACK PO SCH (08:13)
[2019-12-21] MEDS: Famotidine 20 MG TABLET PO SCH (08:13)
[2019-12-21] MEDS: Furosemide 60 MG in 0.9 % Sodium Chloride 50 ML IVPB SCH (08:13)
[2019-12-21] MEDS: Cholecalciferol (D-3) 1,000 UNIT (25MCG) TABLET PO SCH (08:13)
[2019-12-21] MEDS: Leptospermum Honey Gel 44 ML TUBE TP SCH (08:13)
[2019-12-21 08:14] LABS: Hematocrit 27.7 % (35.3-44.9); Hemoglobin 8.6 g/dL (11.5-15.4); Mean Corpuscular Hemoglobin 29.6 pg (28.0-33.3); Mean Corpuscular Volume 95.2 fL (83.0-100.0); Mean Platelet Volume 9.1 fL (9.4-12.4); Platelet Count 816 K/mcL (140-400); Red Blood Count 2.91 M/mcL (3.82-4.97); Red Cell Distribution Width 13.6 % (11.5-14.5); White Blood Count 12.6 K/mcL (4.3-11.1)
[2019-12-21 08:27] LABS: BUN/Creatinine Ratio 41 (6-26); Blood Urea Nitrogen 35 mg/dL (8-23); Calcium 9.1 mg/dL (8.6-10.3); Carbon Dioxide 30 mEq/L (23-29); Chloride 94 mEq/L (98-107); Glucose 153 mg/dL (70-105); Osmolality,Calculated 293 (280-300); Potassium 3.5 mEq/L (3.5-5.1); Sodium 136 mEq/L (136-145); eGFR For African Americans > 60 (> 60); eGFR For Non-African Americans > 60 (> 60)
[2019-12-21] MEDS: Insulin DETEMIR 100 UNIT/ML X5UNITS SQ SCH ×2 (08:56→21:23)
[2019-12-21] MEDS: Insulin LISPRO 300 UNITS/3 ML VIAL SQ SCH ×3 (08:56→17:26)
[2019-12-21] MEDS: Silvasorb 44.4 ML TUBE TP SCH (08:56)
[2019-12-21] MEDS: Budesonide/Formoterol 80/4.5 1 PUFF INH IH SCH ×2 (10:58→21:43)
[2019-12-21 11:59] LABS: Adenovirus Not Detected (Not Detect); Bordetella Pertussis Not Detected (Not Detect); Chlamydophila pneumoniae Not Detected (Not Detect); Coronavirus 229E Not Detected (Not Detect); Coronavirus HKU1 Not Detected (Not Detect); Coronavirus NL63 Not Detected (Not Detect); Coronavirus OC43 Not Detected (Not Detect); Human Metapneumovirus Not Detected (Not Detect); Human Rhinovirus/Enterovirus Not Detected (Not Detect); Influenza A Subtype 2009 H1 Not Detected (Not Detect); Influenza B Not Detected (Not Detect); Mycoplasma pneumoniae Not Detected (Not Detect); Parainfluenza Virus 1 Not Detected (Not Detect); Parainfluenza Virus 2 Not Detected (Not Detect); Parainfluenza Virus 3 Not Detected (Not Detect); Parainfluenza Virus 4 Not Detected (Not Detect); Respiratory Syncytial Virus Not Detected (Not Detect); SARS-CoV-2 Not Detected (Not Detect)
[2019-12-21] MEDS: Furosemide 40 MG TABLET PO SCH (17:12)
[2019-12-21] MEDS: Fenofibrate 54 MG TABLET PO SCH (21:22)
[2019-12-21] MEDS: Melatonin 3 MG TABLET PO SCH (21:23)
[2019-12-21] MEDS: Gabapentin 300 MG CAPSULE PO SCH (21:23)
[2019-12-22] MEDS: Ipratropium 1 PUFF INHALER IH SCH ×4 (03:34→22:39)
[2019-12-22] MEDS: *HR* Enoxaparin 40 MG/0.4 ML SYRINGE SQ SCH (05:14)
[2019-12-22] MEDS: Famotidine 20 MG TABLET PO SCH (08:59)
[2019-12-22] MEDS: Ascorbic Acid 500 MG TABLET PO SCH (08:59)
[2019-12-22] MEDS: Sennosides 8.6 MG TABLET PO SCH ×2 (08:59→19:26)
[2019-12-22] MEDS: Multivit/Ca/Min/Fe/FA 1 TAB TABLET PO SCH (08:59)
[2019-12-22] MEDS: Cholecalciferol (D-3) 1,000 UNIT (25MCG) TABLET PO SCH (08:59)
[2019-12-22] MEDS: amLODIPine 5 MG TABLET PO SCH (09:00)
[2019-12-22] MEDS: Dexamethasone 4 MG/ML VIAL IVP SCH (09:00)
[2019-12-22] MEDS: Loratadine 10 MG TABLET PO SCH (09:00)
[2019-12-22] MEDS: Aspirin Enteric Coated 81 MG Tablet PO SCH (09:01)
[2019-12-22] MEDS: polyethylene glycoL 3350 17 GM POWD.PACK PO SCH (09:01)
[2019-12-22] MEDS: Insulin DETEMIR 100 UNIT/ML X5UNITS SQ SCH ×2 (09:03→21:44)
[2019-12-22] MEDS: Insulin LISPRO 300 UNITS/3 ML VIAL SQ SCH ×3 (09:04→16:42)
[2019-12-22] MEDS: Furosemide 40 MG TABLET PO SCH ×2 (09:05→16:42)
[2019-12-22] MEDS: Silvasorb 44.4 ML TUBE TP SCH (10:00)
[2019-12-22] MEDS: Leptospermum Honey Gel 44 ML TUBE TP SCH (10:00)
[2019-12-22] MEDS: Morphine Sulfate Oral CONC 10 MG/0.5 ML ORAL.SYG SL SCH ×3 (10:00→17:55)
[2019-12-22] MEDS: Budesonide/Formoterol 80/4.5 1 PUFF INH IH SCH ×2 (11:04→22:39)
[2019-12-22] MEDS: Fenofibrate 54 MG TABLET PO SCH (19:25)
[2019-12-22] MEDS: Melatonin 3 MG TABLET PO SCH (19:26)
[2019-12-22] MEDS: Gabapentin 300 MG CAPSULE PO SCH (19:26)
[2019-12-22] MEDS: Haloperidol Lactate 5 MG/ML VIAL IVP PRN (21:42)
[2019-12-23] MEDS: Morphine Sulfate Oral CONC 10 MG/0.5 ML ORAL.SYG SL SCH ×5 (00:08→23:41)
[2019-12-23] MEDS: Ipratropium 1 PUFF INHALER IH SCH ×4 (04:22→21:39)
[2019-12-23] MEDS: *HR* Enoxaparin 40 MG/0.4 ML SYRINGE SQ SCH (05:59)
[2019-12-23] MEDS: Acetaminophen 325 MG TABLET PO PRN (06:41)
[2019-12-23] MEDS: Insulin LISPRO 300 UNITS/3 ML VIAL SQ SCH ×3 (09:35→18:35)
[2019-12-23] MEDS: Furosemide 40 MG TABLET PO SCH ×2 (09:36→16:36)
[2019-12-23] MEDS: Aspirin Enteric Coated 81 MG Tablet PO SCH (09:36)
[2019-12-23] MEDS: Multivit/Ca/Min/Fe/FA 1 TAB TABLET PO SCH (09:36)
[2019-12-23] MEDS: polyethylene glycoL 3350 17 GM POWD.PACK PO SCH (09:36)
[2019-12-23] MEDS: Cholecalciferol (D-3) 1,000 UNIT (25MCG) TABLET PO SCH (09:36)
[2019-12-23] MEDS: Loratadine 10 MG TABLET PO SCH (09:36)
[2019-12-23] MEDS: Insulin DETEMIR 100 UNIT/ML X5UNITS SQ SCH ×2 (09:36→20:10)
[2019-12-23] MEDS: amLODIPine 5 MG TABLET PO SCH (09:36)
[2019-12-23] MEDS: Ascorbic Acid 500 MG TABLET PO SCH (09:36)
[2019-12-23] MEDS: Famotidine 20 MG TABLET PO SCH (09:37)
[2019-12-23] MEDS: Dexamethasone 4 MG/ML VIAL IVP SCH (09:37)
[2019-12-23] MEDS: Sennosides 8.6 MG TABLET PO SCH ×2 (09:37→20:07)
[2019-12-23] MEDS: Budesonide/Formoterol 80/4.5 1 PUFF INH IH SCH ×2 (10:13→21:39)
[2019-12-23 10:55] LABS: Basophils % 0.3 %; Eosinophils # 0.2 K/mcL (0.0-0.6); Eosinophils % 1.8 %; Hematocrit 25.9 % (35.3-44.9); Hemoglobin 7.9 g/dL (11.5-15.4); Mean Corpuscular HGB Conc 30.5 g/dL (31.6-35.5); Mean Corpuscular Hemoglobin 28.8 pg (28.0-33.3); Mean Corpuscular Volume 94.5 fL (83.0-100.0); Monocytes # 1.5 K/mcL (0.0-1.3); Monocytes % 11.4 %; Neutrophils # 8.8 K/mcL (1.6-8.9); Nucleated Red Blood Cells 0.3 /100 WBC (0); Platelet Count 872 K/mcL (140-400); Red Blood Count 2.74 M/mcL (3.82-4.97); Red Cell Distribution Width 14.3 % (11.5-14.5); Segmented Neutrophils % 69.5 %; White Blood Count 12.7 K/mcL (4.3-11.1)
[2019-12-23 11:24] LABS: BUN/Creatinine Ratio 27 (6-26); Blood Urea Nitrogen 28 mg/dL (8-23); Carbon Dioxide 32 mEq/L (23-29); Chloride 91 mEq/L (98-107); Glucose 280 mg/dL (70-105); Osmolality,Calculated 290 (280-300); Potassium 3.3 mEq/L (3.5-5.1); Sodium 132 mEq/L (136-145); eGFR For African Americans > 60 (> 60); eGFR For Non-African Americans 54 (> 60)
[2019-12-23 11:36] LABS: Bacteria,Urine Few per hpf (None-Few); Bilirubin,Urine Negative (Negative); Blood,Urine Trace (Negative); Budding Yeast,Urine Many per hpf (None Seen); Clarity,Urine Ex.Turbid (Clear); Color,Urine Yellow (Yellow); Glucose,Urine (UA) 30 mg/dL (Normal); Hyaline Casts,Urine Many per lpf (None Seen); Ketones,Urine Negative (Negative); Leukocyte Esterase,Urine Large (Negative); Mucus,Urine Few per lpf (None-Few); Nitrite,Urine Negative (Negative); Protein,Urine 100 mg/dL (Neg-Trace); RBC,Urine 30-50 per hpf (0-3); Renal Epithelial Cells,Urine Few per hpf (None-Few); Transitional Epi Cells,Urine Few per hpf (None-Few); Urobilinogen,Urine Normal (Normal); WBC,Urine TNTC per hpf (0-3)
[2019-12-23] MEDS ORDERED: Vancomycin 0 MG in 0.9 % Sodium Chloride 250 ML IVPB SCH (12:00)
[2019-12-23] MEDS: Leptospermum Honey Gel 44 ML TUBE TP SCH (13:33)
[2019-12-23] MEDS: Silvasorb 44.4 ML TUBE TP SCH (13:33)
[2019-12-23] MEDS: Piperacillin/Tazobactam 3.375 GM in 0.9 % Sodium Chloride Mini Bag 100 ML IVPB SCH ×2 (13:35→20:08)
[2019-12-23] MEDS: Vancomycin 1,250 MG/262.5 ML IV.SOLN IVPB SCH (13:35)
[2019-12-23] MEDS: Fenofibrate 54 MG TABLET PO SCH (20:06)
[2019-12-23] MEDS: Gabapentin 300 MG CAPSULE PO SCH (20:07)
[2019-12-23] MEDS: Melatonin 3 MG TABLET PO SCH (20:07)
[2019-12-24] MEDS: Morphine Sulfate Oral CONC 10 MG/0.5 ML ORAL.SYG SL SCH ×6 (00:23→23:56)
[2019-12-24] MEDS: Piperacillin/Tazobactam 3.375 GM in 0.9 % Sodium Chloride Mini Bag 100 ML IVPB SCH ×3 (04:10→20:26)
[2019-12-24] MEDS: Ipratropium 1 PUFF INHALER IH SCH ×4 (04:39→21:58)
[2019-12-24] MEDS: *HR* Enoxaparin 40 MG/0.4 ML SYRINGE SQ SCH (05:33)
[2019-12-24] MEDS: Insulin LISPRO 300 UNITS/3 ML VIAL SQ SCH ×3 (08:17→16:14)
[2019-12-24] MEDS: Furosemide 40 MG TABLET PO SCH ×2 (08:18→15:56)
[2019-12-24] MEDS: Loratadine 10 MG TABLET PO SCH (08:18)
[2019-12-24] MEDS: Cholecalciferol (D-3) 1,000 UNIT (25MCG) TABLET PO SCH (08:18)
[2019-12-24] MEDS: polyethylene glycoL 3350 17 GM POWD.PACK PO SCH (08:18)
[2019-12-24] MEDS: Aspirin Enteric Coated 81 MG Tablet PO SCH (08:19)
[2019-12-24] MEDS: Multivit/Ca/Min/Fe/FA 1 TAB TABLET PO SCH (08:19)
[2019-12-24] MEDS: amLODIPine 5 MG TABLET PO SCH (08:19)
[2019-12-24] MEDS: Leptospermum Honey Gel 44 ML TUBE TP SCH (08:19)
[2019-12-24] MEDS: Ascorbic Acid 500 MG TABLET PO SCH (08:19)
[2019-12-24] MEDS: Dexamethasone 4 MG/ML VIAL IVP SCH (08:19)
[2019-12-24] MEDS: Famotidine 20 MG TABLET PO SCH (08:19)
[2019-12-24] MEDS: Sennosides 8.6 MG TABLET PO SCH ×2 (08:19→20:27)
[2019-12-24] MEDS: Insulin DETEMIR 100 UNIT/ML X5UNITS SQ SCH ×2 (08:23→20:33)
[2019-12-24] MEDS: Silvasorb 44.4 ML TUBE TP SCH (09:03)
[2019-12-24] MEDS: Budesonide/Formoterol 80/4.5 1 PUFF INH IH SCH ×2 (09:48→21:57)
[2019-12-24] MEDS: Vancomycin 1,250 MG/262.5 ML IV.SOLN IVPB SCH (10:47)
[2019-12-24] MEDS: Haloperidol Lactate 5 MG/ML VIAL IVP PRN (10:50)
[2019-12-24 12:27] LABS: Basophils # 0.1 K/mcL (0.0-0.2); Basophils % 0.4 %; Eosinophils # 0.2 K/mcL (0.0-0.6); Eosinophils % 1.7 %; Hematocrit 23.1 % (35.3-44.9); Hemoglobin 7.3 g/dL (11.5-15.4); Immature Granulocytes % 1.1 % (0-4); Lymphocytes # 1.4 K/mcL (0.6-4.6); Lymphocytes % 10.3 %; Mean Corpuscular HGB Conc 31.6 g/dL (31.6-35.5); Mean Corpuscular Hemoglobin 29.7 pg (28.0-33.3); Mean Corpuscular Volume 93.9 fL (83.0-100.0); Mean Platelet Volume 8.9 fL (9.4-12.4); Monocytes # 1.1 K/mcL (0.0-1.3); Monocytes % 7.8 %; Neutrophils # 10.9 K/mcL (1.6-8.9); Nucleated Red Blood Cells 0.2 /100 WBC (0); Platelet Count 769 K/mcL (140-400); Red Blood Count 2.46 M/mcL (3.82-4.97); Red Cell Distribution Width 14.6 % (11.5-14.5); Segmented Neutrophils % 78.7 %; White Blood Count 13.9 K/mcL (4.3-11.1)
[2019-12-24 12:41] LABS: BUN/Creatinine Ratio 29 (6-26); Blood Urea Nitrogen 29 mg/dL (8-23); Calcium 8.9 mg/dL (8.6-10.3); Carbon Dioxide 30 mEq/L (23-29); Chloride 92 mEq/L (98-107); Glucose 222 mg/dL (70-105); Osmolality,Calculated 287 (280-300); Potassium 3.5 mEq/L (3.5-5.1); Sodium 132 mEq/L (136-145); Vancomycin,Trough 16 mcg/mL (5-10); eGFR For African Americans > 60 (> 60); eGFR For Non-African Americans 55 (> 60)
[2019-12-24] MEDS: Melatonin 3 MG TABLET PO SCH (20:27)
[2019-12-24] MEDS: Fenofibrate 54 MG TABLET PO SCH (20:27)
[2019-12-24] MEDS: Gabapentin 300 MG CAPSULE PO SCH (20:27)
[2019-12-25] MEDS: Piperacillin/Tazobactam 3.375 GM in 0.9 % Sodium Chloride Mini Bag 100 ML IVPB SCH ×2 (03:52→12:20)
[2019-12-25] MEDS: Ipratropium 1 PUFF INHALER IH SCH ×4 (03:59→21:54)
[2019-12-25] MEDS: *HR* Enoxaparin 40 MG/0.4 ML SYRINGE SQ SCH (05:26)
[2019-12-25] MEDS: Morphine Sulfate Oral CONC 10 MG/0.5 ML ORAL.SYG SL SCH ×3 (05:26→17:49)
[2019-12-25 08:17] LABS: Basophils # 0.1 K/mcL (0.0-0.2); Basophils % 0.6 %; Eosinophils # 0.4 K/mcL (0.0-0.6); Eosinophils % 3.7 %; Hematocrit 23.7 % (35.3-44.9); Hemoglobin 7.4 g/dL (11.5-15.4); Immature Granulocytes % 1.4 % (0-4); Lymphocytes # 1.9 K/mcL (0.6-4.6); Lymphocytes % 17.9 %; Mean Corpuscular HGB Conc 31.2 g/dL (31.6-35.5); Mean Corpuscular Hemoglobin 29.6 pg (28.0-33.3); Mean Corpuscular Volume 94.8 fL (83.0-100.0); Mean Platelet Volume 8.4 fL (9.4-12.4); Monocytes # 1.1 K/mcL (0.0-1.3); Monocytes % 10.6 %; Neutrophils # 7.1 K/mcL (1.6-8.9); Nucleated Red Blood Cells 0.3 /100 WBC (0); Platelet Count 727 K/mcL (140-400); Segmented Neutrophils % 65.8 %; White Blood Count 10.8 K/mcL (4.3-11.1)
[2019-12-25 08:40] LABS: BUN/Creatinine Ratio 26 (6-26); Blood Urea Nitrogen 25 mg/dL (8-23); Calcium 8.6 mg/dL (8.6-10.3); Carbon Dioxide 32 mEq/L (23-29); Chloride 94 mEq/L (98-107); Glucose 176 mg/dL (70-105); Osmolality,Calculated 289 (280-300); Potassium 3.2 mEq/L (3.5-5.1); Sodium 135 mEq/L (136-145); eGFR For African Americans > 60 (> 60); eGFR For Non-African Americans 56 (> 60)
[2019-12-25] MEDS: Insulin LISPRO 300 UNITS/3 ML VIAL SQ SCH ×3 (09:41→17:50)
[2019-12-25] MEDS: polyethylene glycoL 3350 17 GM POWD.PACK PO SCH (09:42)
[2019-12-25] MEDS: Insulin DETEMIR 100 UNIT/ML X5UNITS SQ SCH ×2 (09:42→20:27)
[2019-12-25] MEDS: Dexamethasone 4 MG/ML VIAL IVP SCH (09:43)
[2019-12-25] MEDS: Loratadine 10 MG TABLET PO SCH (09:44)
[2019-12-25] MEDS: Multivit/Ca/Min/Fe/FA 1 TAB TABLET PO SCH (09:44)
[2019-12-25] MEDS: amLODIPine 5 MG TABLET PO SCH (09:44)
[2019-12-25] MEDS: Aspirin Enteric Coated 81 MG Tablet PO SCH (09:44)
[2019-12-25] MEDS: Furosemide 40 MG TABLET PO SCH ×2 (09:44→17:49)
[2019-12-25] MEDS: Sennosides 8.6 MG TABLET PO SCH ×2 (09:44→20:27)
[2019-12-25] MEDS: Ascorbic Acid 500 MG TABLET PO SCH (09:44)
[2019-12-25] MEDS: Cholecalciferol (D-3) 1,000 UNIT (25MCG) TABLET PO SCH (09:44)
[2019-12-25] MEDS: Silvasorb 44.4 ML TUBE TP SCH (09:45)
[2019-12-25] MEDS: Leptospermum Honey Gel 44 ML TUBE TP SCH (09:45)
[2019-12-25] MEDS: Famotidine 20 MG TABLET PO SCH (09:45)
[2019-12-25] MEDS: Acetaminophen 325 MG TABLET PO PRN (10:20)
[2019-12-25] MEDS: Budesonide/Formoterol 80/4.5 1 PUFF INH IH SCH ×2 (10:29→21:54)
[2019-12-25] MEDS: Vancomycin 1,250 MG/262.5 ML IV.SOLN IVPB SCH (12:30)
[2019-12-25] MEDS ORDERED: Perflutren Lipid Microsphere 1.3 ML in 0.9 % Sodium Chloride 8.7 ML IVP PRN (16:46)
[2019-12-25] MEDS: Fenofibrate 54 MG TABLET PO SCH (20:26)
[2019-12-25] MEDS: Gabapentin 300 MG CAPSULE PO SCH (20:27)
[2019-12-25] MEDS: Melatonin 3 MG TABLET PO SCH (20:27)
[2019-12-26] MEDS: Morphine Sulfate Oral CONC 10 MG/0.5 ML ORAL.SYG SL SCH ×5 (00:54→23:47)
[2019-12-26] MEDS: Piperacillin/Tazobactam 3.375 GM in 0.9 % Sodium Chloride Mini Bag 100 ML IVPB SCH ×4 (00:56→23:47)
[2019-12-26] MEDS: Ipratropium 1 PUFF INHALER IH SCH ×4 (03:45→22:25)
[2019-12-26 04:40] LABS: Basophils % 0.4 %; Eosinophils # 0.3 K/mcL (0.0-0.6); Eosinophils % 3.3 %; Hematocrit 22.9 % (35.3-44.9); Immature Granulocytes % 1.5 % (0-4); Lymphocytes # 2.2 K/mcL (0.6-4.6); Lymphocytes % 23.3 %; Mean Corpuscular HGB Conc 30.6 g/dL (31.6-35.5); Mean Corpuscular Hemoglobin 29.2 pg (28.0-33.3); Mean Corpuscular Volume 95.4 fL (83.0-100.0); Mean Platelet Volume 8.5 fL (9.4-12.4); Monocytes # 1.1 K/mcL (0.0-1.3); Monocytes % 11.1 %; Neutrophils # 5.8 K/mcL (1.6-8.9); Nucleated Red Blood Cells 0.3 /100 WBC (0); Platelet Count 732 K/mcL (140-400); Red Cell Distribution Width 15.1 % (11.5-14.5); Segmented Neutrophils % 60.4 %; White Blood Count 9.6 K/mcL (4.3-11.1)
[2019-12-26 04:50] LABS: BUN/Creatinine Ratio 23 (6-26); Blood Urea Nitrogen 23 mg/dL (8-23); Calcium 8.3 mg/dL (8.6-10.3); Carbon Dioxide 32 mEq/L (23-29); Chloride 96 mEq/L (98-107); Glucose 130 mg/dL (70-105); Osmolality,Calculated 289 (280-300); Potassium 3.3 mEq/L (3.5-5.1); Sodium 137 mEq/L (136-145); eGFR For African Americans > 60 (> 60); eGFR For Non-African Americans 56 (> 60)
[2019-12-26] MEDS: *HR* Enoxaparin 40 MG/0.4 ML SYRINGE SQ SCH (05:49)
[2019-12-26] MEDS: Insulin LISPRO 300 UNITS/3 ML VIAL SQ SCH ×3 (09:04→17:07)
[2019-12-26 09:05] LABS: % Iron Saturation 18 % (15-50); Iron 43 mcg/dL (50-170); Transferrin 169 mg/dL (203-362)
[2019-12-26] MEDS: polyethylene glycoL 3350 17 GM POWD.PACK PO SCH (09:06)
[2019-12-26] MEDS: Dexamethasone 4 MG/ML VIAL IVP SCH (09:07)
[2019-12-26] MEDS: Famotidine 20 MG TABLET PO SCH (09:13)
[2019-12-26] MEDS: Loratadine 10 MG TABLET PO SCH (09:13)
[2019-12-26] MEDS: Silvasorb 44.4 ML TUBE TP SCH (09:14)
[2019-12-26] MEDS: Aspirin Enteric Coated 81 MG Tablet PO SCH (09:14)
[2019-12-26] MEDS: Leptospermum Honey Gel 44 ML TUBE TP SCH (09:14)
[2019-12-26] MEDS: Cholecalciferol (D-3) 1,000 UNIT (25MCG) TABLET PO SCH (09:15)
[2019-12-26] MEDS: Ascorbic Acid 500 MG TABLET PO SCH (09:15)
[2019-12-26] MEDS: Furosemide 40 MG TABLET PO SCH ×2 (09:15→17:27)
[2019-12-26] MEDS: Multivit/Ca/Min/Fe/FA 1 TAB TABLET PO SCH (09:16)
[2019-12-26] MEDS: amLODIPine 5 MG TABLET PO SCH (09:17)
[2019-12-26] MEDS: Sennosides 8.6 MG TABLET PO SCH ×2 (09:17→20:23)
[2019-12-26 09:23] LABS: Ferritin 339 ng/mL (10-120)
[2019-12-26] MEDS: Insulin DETEMIR 100 UNIT/ML X5UNITS SQ SCH ×2 (09:25→20:23)
[2019-12-26] MEDS: Budesonide/Formoterol 80/4.5 1 PUFF INH IH SCH ×2 (09:53→22:26)
[2019-12-26 09:57] LABS: Folate 14.3 ng/mL (3.0-16.0)
[2019-12-26 13:36] LABS: Hematocrit 23.9 % (35.3-44.9); Hemoglobin 7.4 g/dL (11.5-15.4)
[2019-12-26] MEDS: Fenofibrate 54 MG TABLET PO SCH (20:23)
[2019-12-26] MEDS: Gabapentin 300 MG CAPSULE PO SCH (20:23)
[2019-12-26] MEDS: Melatonin 3 MG TABLET PO SCH (20:23)
[2019-12-27] MEDS: Haloperidol Lactate 5 MG/ML VIAL IVP PRN (00:29)
[2019-12-27] MEDS: Ipratropium 1 PUFF INHALER IH SCH ×3 (04:03→15:33)
[2019-12-27 05:42] LABS: Basophils # 0.1 K/mcL (0.0-0.2); Basophils % 0.6 %; Eosinophils # 0.3 K/mcL (0.0-0.6); Eosinophils % 2.9 %; Hematocrit 23.8 % (35.3-44.9); Hemoglobin 7.2 g/dL (11.5-15.4); Immature Granulocytes % 1.6 % (0-4); Lymphocytes # 2.4 K/mcL (0.6-4.6); Lymphocytes % 23.9 %; Mean Corpuscular HGB Conc 30.3 g/dL (31.6-35.5); Mean Corpuscular Hemoglobin 28.8 pg (28.0-33.3); Mean Corpuscular Volume 95.2 fL (83.0-100.0); Mean Platelet Volume 8.3 fL (9.4-12.4); Monocytes # 1.2 K/mcL (0.0-1.3); Monocytes % 11.5 %; Nucleated Red Blood Cells 0.6 /100 WBC (0); Platelet Count 769 K/mcL (140-400); Red Cell Distribution Width 15.4 % (11.5-14.5); Segmented Neutrophils % 59.5 %; White Blood Count 10.1 K/mcL (4.3-11.1)
[2019-12-27] MEDS: *HR* Enoxaparin 40 MG/0.4 ML SYRINGE SQ SCH (05:56)
[2019-12-27] MEDS: Morphine Sulfate Oral CONC 10 MG/0.5 ML ORAL.SYG SL SCH ×4 (05:57→23:14)
[2019-12-27 06:07] LABS: BUN/Creatinine Ratio 18 (6-26); Blood Urea Nitrogen 18 mg/dL (8-23); Calcium 8.7 mg/dL (8.6-10.3); Carbon Dioxide 31 mEq/L (23-29); Chloride 96 mEq/L (98-107); Glucose 100 mg/dL (70-105); Osmolality,Calculated 286 (280-300); Potassium 3.4 mEq/L (3.5-5.1); Sodium 137 mEq/L (136-145); eGFR For African Americans > 60 (> 60); eGFR For Non-African Americans 55 (> 60)
[2019-12-27] MEDS: Insulin LISPRO 300 UNITS/3 ML VIAL SQ SCH ×3 (08:53→16:42)
[2019-12-27] MEDS: Cholecalciferol (D-3) 1,000 UNIT (25MCG) TABLET PO SCH (09:44)
[2019-12-27] MEDS: Loratadine 10 MG TABLET PO SCH (09:44)
[2019-12-27] MEDS: Sennosides 8.6 MG TABLET PO SCH ×2 (09:44→20:19)
[2019-12-27] MEDS: amLODIPine 5 MG TABLET PO SCH (09:44)
[2019-12-27] MEDS: Aspirin Enteric Coated 81 MG Tablet PO SCH (09:44)
[2019-12-27] MEDS: Dexamethasone 4 MG/ML VIAL IVP SCH (09:44)
[2019-12-27] MEDS: Furosemide 40 MG TABLET PO SCH ×2 (09:44→18:45)
[2019-12-27] MEDS: Multivit/Ca/Min/Fe/FA 1 TAB TABLET PO SCH (09:44)
[2019-12-27] MEDS: Famotidine 20 MG TABLET PO SCH (09:44)
[2019-12-27] MEDS: Ascorbic Acid 500 MG TABLET PO SCH (09:44)
[2019-12-27] MEDS: polyethylene glycoL 3350 17 GM POWD.PACK PO SCH (09:45)
[2019-12-27] MEDS: Insulin DETEMIR 100 UNIT/ML X5UNITS SQ SCH ×2 (09:45→20:53)
[2019-12-27] MEDS ORDERED: metroNIDAZOLE 500 MG TABLET PO SCH (09:45)
[2019-12-27] MEDS: Ertapenem 1,000 MG in 0.9 % Sodium Chloride Mini Bag 100 ML IVPB SCH (10:38)
[2019-12-27] MEDS: Budesonide/Formoterol 80/4.5 1 PUFF INH IH SCH ×2 (11:03→22:06)
[2019-12-27] MEDS ORDERED: Lidocaine -MPF 1% 5 ML AMPUL INFILT ONE (12:22)
[2019-12-27] MEDS: Piperacillin/Tazobactam 3.375 GM in 0.9 % Sodium Chloride Mini Bag 100 ML IVPB SCH (12:39)
[2019-12-27] MEDS ORDERED: Isovue-370 500 ML BOTTLE IVP ONE (13:17)
[2019-12-27] MEDS: Silvasorb 44.4 ML TUBE TP SCH (13:26)
[2019-12-27] MEDS: Leptospermum Honey Gel 44 ML TUBE TP SCH (13:26)
[2019-12-27] MEDS: Gabapentin 300 MG CAPSULE PO SCH (20:19)
[2019-12-27] MEDS: Melatonin 3 MG TABLET PO SCH (20:20)
[2019-12-27] MEDS: Fenofibrate 54 MG TABLET PO SCH (20:20)
[2019-12-27] MEDS: Ipratropium/Albuterol Neb 3 ML IH SCH (22:05)
[2019-12-28] MEDS: Ipratropium/Albuterol Neb 3 ML IH SCH ×4 (03:08→21:47)
[2019-12-28] MEDS: Morphine Sulfate Oral CONC 10 MG/0.5 ML ORAL.SYG SL SCH ×3 (06:00→18:42)
[2019-12-28] MEDS: *HR* Enoxaparin 40 MG/0.4 ML SYRINGE SQ SCH (06:00)
[2019-12-28 06:19] LABS: Basophils # 0.1 K/mcL (0.0-0.2); Basophils % 0.5 %; Eosinophils # 0.3 K/mcL (0.0-0.6); Eosinophils % 1.8 %; Hematocrit 26.1 % (35.3-44.9); Hemoglobin 7.7 g/dL (11.5-15.4); Immature Granulocytes % 1.7 % (0-4); Lymphocytes # 3.1 K/mcL (0.6-4.6); Lymphocytes % 20.9 %; Mean Corpuscular HGB Conc 29.5 g/dL (31.6-35.5); Mean Corpuscular Hemoglobin 28.3 pg (28.0-33.3); Monocytes # 1.6 K/mcL (0.0-1.3); Monocytes % 11.1 %; Neutrophils # 9.4 K/mcL (1.6-8.9); Nucleated Red Blood Cells 0.2 /100 WBC (0); Platelet Count 747 K/mcL (140-400); Red Blood Count 2.72 M/mcL (3.82-4.97); Red Cell Distribution Width 16.1 % (11.5-14.5); White Blood Count 14.7 K/mcL (4.3-11.1)
[2019-12-28 06:38] LABS: BUN/Creatinine Ratio 17 (6-26); Blood Urea Nitrogen 16 mg/dL (8-23); Calcium 8.7 mg/dL (8.6-10.3); Carbon Dioxide 32 mEq/L (23-29); Chloride 97 mEq/L (98-107); Glucose 121 mg/dL (70-105); Osmolality,Calculated 286 (280-300); Potassium 3.9 mEq/L (3.5-5.1); Sodium 137 mEq/L (136-145); eGFR For African Americans > 60 (> 60); eGFR For Non-African Americans 59 (> 60)
[2019-12-28] MEDS: Famotidine 20 MG TABLET PO SCH (09:18)
[2019-12-28] MEDS: polyethylene glycoL 3350 17 GM POWD.PACK PO SCH (09:18)
[2019-12-28] MEDS: Furosemide 40 MG TABLET PO SCH ×2 (09:18→16:29)
[2019-12-28] MEDS: Sennosides 8.6 MG TABLET PO SCH ×2 (09:18→20:30)
[2019-12-28] MEDS: Ascorbic Acid 500 MG TABLET PO SCH (09:19)
[2019-12-28] MEDS: Aspirin Enteric Coated 81 MG Tablet PO SCH (09:19)
[2019-12-28] MEDS: Loratadine 10 MG TABLET PO SCH (09:20)
[2019-12-28] MEDS: Multivit/Ca/Min/Fe/FA 1 TAB TABLET PO SCH (09:20)
[2019-12-28] MEDS: Cholecalciferol (D-3) 1,000 UNIT (25MCG) TABLET PO SCH (09:20)
[2019-12-28] MEDS: Ertapenem 1,000 MG in 0.9 % Sodium Chloride Mini Bag 100 ML IVPB SCH (09:21)
[2019-12-28] MEDS: Insulin LISPRO 300 UNITS/3 ML VIAL SQ SCH ×3 (09:29→18:38)
[2019-12-28] MEDS: Insulin DETEMIR 100 UNIT/ML X5UNITS SQ SCH ×2 (09:33→20:34)
[2019-12-28] MEDS: Silvasorb 44.4 ML TUBE TP SCH (09:36)
[2019-12-28] MEDS: amLODIPine 5 MG TABLET PO SCH (09:36)
[2019-12-28] MEDS: Leptospermum Honey Gel 44 ML TUBE TP SCH (09:36)
[2019-12-28] MEDS: Budesonide/Formoterol 80/4.5 1 PUFF INH IH SCH ×2 (10:50→21:47)
[2019-12-28] MEDS: Doxycycline 100 MG CAPSULE PO SCH ×2 (11:25→20:30)
[2019-12-28] MEDS: Haloperidol Lactate 5 MG/ML VIAL IVP PRN (11:28)
[2019-12-28] MEDS ORDERED: E-Z-HD (BARIUM SULF) SUSPENSION PO ONE (15:20)
[2019-12-28] MEDS ORDERED: E-Z-PAQUE (BARIUM SULF) SUSP 1 BOTTLE PO ONE (15:20)
[2019-12-28] MEDS: Acetaminophen 325 MG TABLET PO PRN (16:28)
[2019-12-28] MEDS: *HR* Labetalol 20 MG/4 ML SYRINGE IVP PRN (16:30)
[2019-12-28] MEDS: Fenofibrate 54 MG TABLET PO SCH (20:30)
[2019-12-28] MEDS: Gabapentin 300 MG CAPSULE PO SCH (20:30)
[2019-12-28] MEDS: Melatonin 3 MG TABLET PO SCH (20:30)
[2019-12-29 04:41] LABS: Basophils # 0.1 K/mcL (0.0-0.2); Basophils % 0.5 %; Eosinophils # 0.1 K/mcL (0.0-0.6); Eosinophils % 1.1 %; Hematocrit 25.3 % (35.3-44.9); Hemoglobin 7.7 g/dL (11.5-15.4); Immature Granulocytes % 1.3 % (0-4); Lymphocytes % 23.3 %; Mean Corpuscular HGB Conc 30.4 g/dL (31.6-35.5); Mean Platelet Volume 8.1 fL (9.4-12.4); Monocytes # 1.5 K/mcL (0.0-1.3); Monocytes % 11.5 %; Nucleated Red Blood Cells 0.2 /100 WBC (0); Platelet Count 704 K/mcL (140-400); Red Blood Count 2.75 M/mcL (3.82-4.97); Red Cell Distribution Width 16.4 % (11.5-14.5); Segmented Neutrophils % 62.3 %; White Blood Count 12.8 K/mcL (4.3-11.1)
[2019-12-29 05:00] LABS: BUN/Creatinine Ratio 17 (6-26); Blood Urea Nitrogen 17 mg/dL (8-23); Calcium 8.3 mg/dL (8.6-10.3); Carbon Dioxide 33 mEq/L (23-29); Chloride 93 mEq/L (98-107); Glucose 99 mg/dL (70-105); Osmolality,Calculated 284 (280-300); Potassium 3.9 mEq/L (3.5-5.1); Sodium 136 mEq/L (136-145); eGFR For African Americans > 60 (> 60); eGFR For Non-African Americans 55 (> 60)
[2019-12-29] MEDS: Morphine Sulfate Oral CONC 10 MG/0.5 ML ORAL.SYG SL SCH ×4 (05:12→17:13)
[2019-12-29] MEDS: *HR* Enoxaparin 40 MG/0.4 ML SYRINGE SQ SCH (05:16)
[2019-12-29] MEDS: Ipratropium/Albuterol Neb 3 ML IH SCH ×4 (05:18→21:57)
[2019-12-29] MEDS: Insulin LISPRO 300 UNITS/3 ML VIAL SQ SCH ×3 (09:13→17:52)
[2019-12-29] MEDS: Aspirin Enteric Coated 81 MG Tablet PO SCH (09:29)
[2019-12-29] MEDS: Sennosides 8.6 MG TABLET PO SCH ×2 (09:29→21:48)
[2019-12-29] MEDS: polyethylene glycoL 3350 17 GM POWD.PACK PO SCH (09:30)
[2019-12-29] MEDS: Ascorbic Acid 500 MG TABLET PO SCH (09:30)
[2019-12-29] MEDS: Multivit/Ca/Min/Fe/FA 1 TAB TABLET PO SCH (09:30)
[2019-12-29] MEDS: Furosemide 40 MG TABLET PO SCH ×2 (09:30→17:13)
[2019-12-29] MEDS: amLODIPine 5 MG TABLET PO SCH (09:30)
[2019-12-29] MEDS: Loratadine 10 MG TABLET PO SCH (09:30)
[2019-12-29] MEDS: Cholecalciferol (D-3) 1,000 UNIT (25MCG) TABLET PO SCH (09:30)
[2019-12-29] MEDS: Doxycycline 100 MG CAPSULE PO SCH ×2 (09:30→21:46)
[2019-12-29] MEDS: Ertapenem 1,000 MG in 0.9 % Sodium Chloride Mini Bag 100 ML IVPB SCH (09:31)
[2019-12-29] MEDS: Insulin DETEMIR 100 UNIT/ML X5UNITS SQ SCH ×2 (09:31→21:47)
[2019-12-29] MEDS: Famotidine 20 MG TABLET PO SCH (09:32)
[2019-12-29] MEDS: Silvasorb 44.4 ML TUBE TP SCH (09:32)
[2019-12-29] MEDS: Leptospermum Honey Gel 44 ML TUBE TP SCH (09:32)
[2019-12-29] MEDS: Budesonide/Formoterol 80/4.5 1 PUFF INH IH SCH ×2 (11:02→21:57)
[2019-12-29] MEDS: Fenofibrate 54 MG TABLET PO SCH (21:46)
[2019-12-29] MEDS: Gabapentin 300 MG CAPSULE PO SCH (21:47)
[2019-12-29] MEDS: Melatonin 3 MG TABLET PO SCH (21:47)
[2019-12-30] MEDS: Morphine Sulfate Oral CONC 10 MG/0.5 ML ORAL.SYG SL SCH ×5 (00:03→16:45)
[2019-12-30 03:10] LABS: Basophils # 0.1 K/mcL (0.0-0.2); Basophils % 0.5 %; Eosinophils # 0.2 K/mcL (0.0-0.6); Eosinophils % 1.6 %; Hematocrit 25.5 % (35.3-44.9); Hemoglobin 7.8 g/dL (11.5-15.4); Lymphocytes # 3.1 K/mcL (0.6-4.6); Lymphocytes % 29.5 %; Mean Corpuscular HGB Conc 30.6 g/dL (31.6-35.5); Mean Corpuscular Hemoglobin 29.4 pg (28.0-33.3); Mean Corpuscular Volume 96.2 fL (83.0-100.0); Mean Platelet Volume 8.2 fL (9.4-12.4); Monocytes # 1.2 K/mcL (0.0-1.3); Monocytes % 11.8 %; Neutrophils # 5.8 K/mcL (1.6-8.9); Platelet Count 673 K/mcL (140-400); Red Blood Count 2.65 M/mcL (3.82-4.97); Red Cell Distribution Width 15.9 % (11.5-14.5); Segmented Neutrophils % 55.6 %; White Blood Count 10.4 K/mcL (4.3-11.1)
[2019-12-30 03:27] LABS: BUN/Creatinine Ratio 18 (6-26); Blood Urea Nitrogen 17 mg/dL (8-23); Calcium 8.5 mg/dL (8.6-10.3); Carbon Dioxide 34 mEq/L (23-29); Chloride 93 mEq/L (98-107); Glucose 105 mg/dL (70-105); Osmolality,Calculated 282 (280-300); Potassium 4.3 mEq/L (3.5-5.1); Sodium 135 mEq/L (136-145); eGFR For African Americans > 60 (> 60); eGFR For Non-African Americans 57 (> 60)
[2019-12-30] MEDS: Ipratropium/Albuterol Neb 3 ML IH SCH ×4 (03:48→21:14)
[2019-12-30] MEDS: *HR* Enoxaparin 40 MG/0.4 ML SYRINGE SQ SCH (05:28)
[2019-12-30] MEDS: Famotidine 20 MG TABLET PO SCH (08:08)
[2019-12-30] MEDS: Aspirin Enteric Coated 81 MG Tablet PO SCH (08:08)
[2019-12-30] MEDS: Doxycycline 100 MG CAPSULE PO SCH ×2 (08:08→20:51)
[2019-12-30] MEDS: Cholecalciferol (D-3) 1,000 UNIT (25MCG) TABLET PO SCH (08:08)
[2019-12-30] MEDS: Furosemide 40 MG TABLET PO SCH ×2 (08:08→16:43)
[2019-12-30] MEDS: amLODIPine 5 MG TABLET PO SCH (08:09)
[2019-12-30] MEDS: Loratadine 10 MG TABLET PO SCH (08:09)
[2019-12-30] MEDS: Sennosides 8.6 MG TABLET PO SCH ×2 (08:09→20:52)
[2019-12-30] MEDS: Ascorbic Acid 500 MG TABLET PO SCH (08:09)
[2019-12-30] MEDS: Multivit/Ca/Min/Fe/FA 1 TAB TABLET PO SCH (08:10)
[2019-12-30] MEDS: Ertapenem 1,000 MG in 0.9 % Sodium Chloride Mini Bag 100 ML IVPB SCH (08:11)
[2019-12-30] MEDS: Insulin LISPRO 300 UNITS/3 ML VIAL SQ SCH ×3 (08:11→16:38)
[2019-12-30] MEDS: polyethylene glycoL 3350 17 GM POWD.PACK PO SCH (08:12)
[2019-12-30] MEDS: Insulin DETEMIR 100 UNIT/ML X5UNITS SQ SCH ×2 (08:12→21:07)
[2019-12-30] MEDS: Silvasorb 44.4 ML TUBE TP SCH (08:47)
[2019-12-30] MEDS: Budesonide/Formoterol 80/4.5 1 PUFF INH IH SCH ×2 (10:28→21:15)
[2019-12-30] MEDS: Leptospermum Honey Gel 44 ML TUBE TP SCH (13:44)
[2019-12-30] MEDS: Fenofibrate 54 MG TABLET PO SCH (20:51)
[2019-12-30] MEDS: Melatonin 3 MG TABLET PO SCH (20:51)
[2019-12-30] MEDS: Gabapentin 300 MG CAPSULE PO SCH (20:53)
[2019-12-30] MEDS: Acetaminophen 325 MG TABLET PO PRN (21:15)
[2019-12-31] MEDS: Morphine Sulfate Oral CONC 10 MG/0.5 ML ORAL.SYG SL SCH ×3 (00:06→12:01)
[2019-12-31] MEDS: Ipratropium/Albuterol Neb 3 ML IH SCH ×2 (04:01→10:19)
[2019-12-31] MEDS: *HR* Enoxaparin 40 MG/0.4 ML SYRINGE SQ SCH (05:28)
[2019-12-31 06:51] LABS: Basophils # 0.1 K/mcL (0.0-0.2); Basophils % 0.4 %; Eosinophils # 0.2 K/mcL (0.0-0.6); Eosinophils % 1.2 %; Hematocrit 25.8 % (35.3-44.9); Hemoglobin 7.6 g/dL (11.5-15.4); Immature Granulocytes % 0.5 % (0-4); Lymphocytes # 2.2 K/mcL (0.6-4.6); Mean Corpuscular HGB Conc 29.5 g/dL (31.6-35.5); Mean Corpuscular Hemoglobin 28.3 pg (28.0-33.3); Mean Corpuscular Volume 95.9 fL (83.0-100.0); Mean Platelet Volume 8.2 fL (9.4-12.4); Monocytes # 1.3 K/mcL (0.0-1.3); Platelet Count 628 K/mcL (140-400); Red Blood Count 2.69 M/mcL (3.82-4.97); Red Cell Distribution Width 15.9 % (11.5-14.5); Segmented Neutrophils % 70.9 %; White Blood Count 12.8 K/mcL (4.3-11.1)
[2019-12-31] MEDS: Cholecalciferol (D-3) 1,000 UNIT (25MCG) TABLET PO SCH (08:16)
[2019-12-31] MEDS: Doxycycline 100 MG CAPSULE PO SCH (08:16)
[2019-12-31] MEDS: Aspirin Enteric Coated 81 MG Tablet PO SCH (08:16)
[2019-12-31] MEDS: Sennosides 8.6 MG TABLET PO SCH (08:16)
[2019-12-31] MEDS: Famotidine 20 MG TABLET PO SCH (08:16)
[2019-12-31] MEDS: Multivit/Ca/Min/Fe/FA 1 TAB TABLET PO SCH (08:16)
[2019-12-31] MEDS: amLODIPine 5 MG TABLET PO SCH (08:16)
[2019-12-31] MEDS: Ascorbic Acid 500 MG TABLET PO SCH (08:16)
[2019-12-31] MEDS: Furosemide 40 MG TABLET PO SCH (08:16)
[2019-12-31] MEDS: Loratadine 10 MG TABLET PO SCH (08:16)
[2019-12-31] MEDS: Insulin DETEMIR 100 UNIT/ML X5UNITS SQ SCH (08:17)
[2019-12-31] MEDS: polyethylene glycoL 3350 17 GM POWD.PACK PO SCH (08:17)
[2019-12-31] MEDS: Ertapenem 1,000 MG in 0.9 % Sodium Chloride Mini Bag 100 ML IVPB SCH (08:31)
[2019-12-31] MEDS: Insulin LISPRO 300 UNITS/3 ML VIAL SQ SCH ×2 (08:32→11:57)
[2019-12-31] MEDS: Budesonide/Formoterol 80/4.5 1 PUFF INH IH SCH (10:19)
[2019-12-31] MEDS: Leptospermum Honey Gel 44 ML TUBE TP SCH (11:48)
[2019-12-31] MEDS: Silvasorb 44.4 ML TUBE TP SCH (11:48)
[2019-12-31 11:54] VITALS: BP 147/71
[2019-12-31] MEDS: Acetaminophen 325 MG TABLET PO PRN (12:00)
== END 2019-12-31 13:20 | DRG 871 ==
LOC: 2NENU 04:33 → EMEROOARM 04:33 → 2NENU 07:26 → SUATTDRO 17:45 → 2NENU 12-16 16:02 → 2ANU 12-25 11:56
PROVIDERS: ADMIT Internal Medicine; ATTEND Family Medicine